=== PATIENT | female | born 1955 | race Caucasian/White ===

== ENCOUNTER → 2020-05-13 13:20 | Outpatient (CLI) | payer BC, SELFPAY ==
--- NOTE | ~2020-05-13 | MR_ITS ---
EXAMINATION: MR lumbar spine wo con DATE: 05/13/2020 14:16 INDICATION: Severe low back pain. Twisting injury. TECHNIQUE: Magnetic resonance imaging (MRI) of the lumbar spine was performed without intravenous con trast. Sequences included sagittal T2-weighted FSE, sagittal T2-weighted FS FSE, sagittal T1-weighted FSE, and axial T2-weighted FSE. COMPARISON: None FINDINGS: Bone alignment is normal. Vertebral body heights are normal. There is mildly decreased disc height at L2-L3. The distal spinal cord signal intensity is normal. The conus medullaris is at L1. T he following disc levels are specifically discussed: L1-L2: The disc does not extend beyond the endplate margin. There is mild bilateral facet joint osteo arthritis. There is no neural foraminal stenosis. There is no central canal stenosis. L2-L3: The disc is bulging and has an annular fissure. There is no facet joint osteoarthritis. There is mild bilateral neural foraminal stenosis. There is mild central canal stenosis. L3-L4: The disc is mildly bulging and has an annular fissure. There is mild bilateral facet joint ost eoarthritis. There is mild bilateral neural foraminal stenosis. There is mild central canal stenosis. L4-L5: The disc is bulging and has an annular fissure. There is mild right facet joint osteoarthritis . There is mild bilateral neural foraminal stenosis. There is mild central canal stenosis. L5-S1: The disc is mildly bulging and has an annular fissure. There is mild bilateral facet joint ost eoarthritis. There is no neural foraminal stenosis. There is no central canal stenosis. IMPRESSION: 1. Mild lumbar spondylosis. Reviewed, dictated and finalized at location A. IMPRESSION: 1. Mild lumbar spondylosis.
== END ==
PROVIDERS: PCP Internal Medicine; Visit Provider Nurse Practitioner Family
DX: M47.896 Other spondylosis, lumbar region (principal)
CPT/HCPCS: 72148

== ENCOUNTER 2020-05-24 15:59 | Outpatient (CLI) | payer BC, SELFPAY ==
--- NOTE | ~2020-05-24 | MM_ITS ---
EXAMINATION: MM screening esthela BI w jerri HISTORY: Screening TECHNIQUE: Craniocaudal and mediolateral oblique 3-D tomosynthesis images were obtained and synthetic 2-D images were generated. CAD analysis was submitted and interpreted. COMPARISON: Comparison to multiple prior studies sequentially, with oldest reviewed study dated 03/2017. BREAST PARENCHYMAL COMPOSITION: The breasts are heterogenously dense, which may obscure small masses FINDINGS: There is no evidence of suspicious mass, calcification, or architectural distortion to sugg est malignancy in either breast. There has been no suspicious interval change. IMPRESSION: 1. No mammographic evidence of malignancy. 2. Recommend routine screening mammography in one year. BI-RADS CATEGORY 1 - NEGATIVE Reviewed, dictated and finalized at location A.
== END 2020-05-24 16:00 | disposition home or self-care (01) ==
PROVIDERS: PCP Internal Medicine
DX: Z12.31 Encounter for screening mammogram for malignant neoplasm of breast (principal)
CPT/HCPCS: 77063; 77067

== ENCOUNTER 2020-05-29 13:55 | Emergency (ER) | payer BC, SELFPAY ==
[2020-05-29 13:57] VITALS: BP 119/61; PULSE 103; RESP 23; TEMP 36.6; O2SAT 100
--- NOTE | 2020-05-29 14:38 | ED.GENADULT ---
HPI - General Adult General Chief complaint: Back Pain/Injury Stated complaint: low back pain Time Seen by Provider: 05/29/20 14:37 History of Present Illness HPI narrative: 65-year-old woman with known herniated disc in L4- L5, confirmed by MRI 2 weeks ago. She received an epidural injection at that time and had relief for short period. This is result of a years old injury. She is followed by pain management, she spoke to the nurse practitioner there today and she recommended that she come to the emergency room for pain medication and injection of the site. I have explained to the patient that there will be no injection. Denies any urinary or bowel symptoms and no numbness. Onset (ago): day(s) Location: back (lower back bilat) Severity: severe Quality: sharp Pain Consistency: constant Relieving factors: none Exacerbating factors: movement Treatments prior to arrival: none Related Data Home Medications Medication Instructions Recorded Confirmed solifenacin [Vesicare] 10 mg PO DAILY 05/29/20 spironolactone 100 mg PO DAILY 05/29/20 Allergies Allergy/AdvReac Type Severity Reaction Status Date / Time amoxicillin Allergy Unknown Other Verified 05/29/20 14:02 epinephrine Allergy Unknown Other Verified 05/29/20 14:02 propoxyphene Allergy Unknown Other Verified 05/29/20 14:02 Sulfa (Sulfonamide Allergy Unknown Other Verified 05/29/20 14:02 Antibiotics) Review of Systems Review of Systems: All systems reviewed & are unremarkable except as noted in HPI and below PMFSH Past Medical History Medical History (Updated 05/29/20 @ 16:53 by Regina Verdugo PA-C) Cancer of peritoneum Surgical History Surgical History (Updated 05/29/20 @ 14:54 by Regina Verdugo PA-C) History of hysterectomy Social History Social History (Updated 05/29/20 @ 14:53 by Regina Verdugo PA-C) Smoking status: Never smoker Alcohol intake: current Substance use: never Gender identity (if verbalized by the patient): Female Exam Const: Orientation/consciousness: patient oriented x3 Other: in pain HENMT: Head: normal to inspection Eyes: Pupils: Equal, round and reactive pupils present Resp: Effort & Inspection: normal respiratory effort Auscultation: clear to auscultation bilaterally Cardio: Rate: regular rate Rhythm: regular rhythm Skin: General skin exam: normal color Neuro: General: moves all extremities, normal sensation to monofilament, Unable to assess gait and other (leg lift limited due to pain) Extrem: General: edema right (lymphedema, LE) Psych: Mental Status: mental status grossly normal Course Course Emergency Course: Patient states that she did get some relief from the IV Toradol. She is been able to sit up on the side of the bed now. We will give some Flexeril see if that makes her able to walk. Pt is now dressed and sitting on side of bed. States she feels much better. Recommend follow up with pain management first available date. Vital Signs Vital signs: Vital Signs Temperature 36.6 C 05/29/20 13:57 Pulse Rate 103 H 05/29/20 13:57 Respiratory Rate 23 H 05/29/20 13:57 Blood Pressure 119/61 05/29/20 13:57 Pulse Oximetry 100 05/29/20 13:57 Temperature 36.6 C 05/29/20 13:57 Pulse Rate 71 05/29/20 16:39 Respiratory Rate 18 05/29/20 16:39 Blood Pressure 97/56 L 05/29/20 16:39 Pulse Oximetry 99 05/29/20 16:39 Medical Decision Making Vital Signs Vital Signs: Vital Signs Temperature 36.6 C 05/29/20 13:57 Pulse Rate 103 H 05/29/20 13:57 Respiratory Rate 23 H 05/29/20 13:57 Blood Pressure 119/61 05/29/20 13:57 Pulse Oximetry 100 05/29/20 13:57 Temperature 36.6 C 05/29/20 13:57 Pulse Rate 71 05/29/20 16:39 Respiratory Rate 18 05/29/20 16:39 Blood Pressure 97/56 L 05/29/20 16:39 Pulse Oximetry 99 05/29/20 16:39 Discharge Plan Discharge Clinical Impression: Lumbar disc disease Patient Disposition: Home, Self-C
[2020-05-29] MEDS: KETOROLAC 30 MG/ML VIAL (*BKC) IV PUSH (14:57)
[2020-05-29] MEDS: CYCLOBENZAPRINE HCL 10 MG TABLET PO (16:38)
[2020-05-29 16:39] VITALS: BP 97/56; PULSE 71; RESP 18; O2SAT 99
--- NOTE | 2020-05-29 16:42 | PC.NURSE ---
Pt able to stand up without much pain. PT able to ambulate around room
== END 2020-05-29 17:20 | disposition home or self-care (01) ==
PROVIDERS: Emergency Provider Emergency Medicine; PCP Internal Medicine
DX: M51.26 Other intervertebral disc displacement, lumbar region (principal); Z85.89 Personal history of malignant neoplasm of other organs and systems
CPT/HCPCS: 96374; 99284; A9270; J1885

== ENCOUNTER 2020-05-30 14:49 | Emergency (ER) | payer BC, SELFPAY ==
[2020-05-30 14:57] VITALS: BP 111/58; PULSE 81; RESP 18; TEMP 36.6; O2SAT 100
[2020-05-30] MEDS: SODIUM CHLORIDE 0.9% IV 1,000 ML 999 ML IV CONT ×2 (15:16→17:56)
[2020-05-30 15:23] LABS: Basophils Percent Auto 0.4 % (0.2-1.2); Eosinophils Absolute Auto 0.1 K/mm3 (0-0.3); Eosinophils Percent Auto 1.9 % (0-4.4); Hematocrit 40.7 % (37.0-47.0); Immature Granulocyte Absolute 0.01 K/mm3 (0.00-0.031); Immature Granulocyte Percent A 0.1 % (0-0.5); Lymphocytes Absolute Auto 1.56 K/mm3 (0.9-3.2); Lymphocytes Percent Auto 20.7 % (18.3-44.2); Mean Corpuscular HGB Conc 34.4 g/dl (32-36); Mean Corpuscular Hemoglobin 32.3 pg (26-34); Mean Corpuscular Volume 93.8 fl (80-100); Mean Platelet Volume 10.4 fl (7.4-10.4); Monocytes Absolute Auto 0.5 K/mm3 (0.1-0.6); Monocytes Percent Auto 7.2 % (2.6-8.5); Neutrophils Absolute Auto 5.2 K/mm3 (1.3-6.7); Neutrophils Percent Auto 69.7 % (45.5-73.1); Platelet Count Result 299 k/mm3 (150-375); Red Blood Count 4.34 M/mm3 (4.2-5.4); Red Cell Distribution Width 13.1 % (11.5-14.5); White Blood Count 7.5 K/mm3 (4.5-10.0)
[2020-05-30 15:56] LABS: Erythrocyte Sedimentation Rate 23 mm/hr (0-20)
--- NOTE | 2020-05-30 15:59 | ED.BACK ---
HPI - Back Pain/Injury General Chief Complaint: Back Pain/Injury Stated Complaint: back pain Time Seen by Provider: 05/30/20 14:55 Source: patient, family and old records reviewed Mode of arrival: EMS Limitations: no limitations History of Present Illness HPI Narrative: Patient is a 65-year-old female who presents to emergency department for evaluation of low back pain radiating down the left leg patient with history of chronic low back pain had MRI in March which showed lumbar spondylosis has been having pain since has seen pain management and had injections and has follow-up by phone with pain management tomorrow. Patient was seen in the emergency department yesterday evaluated had improvement but this morning has had increasing pain has been taking Toradol and Flexeril with minimal improvement today. Patient denies illness injury or trauma. Related Data Home Medications Medication Instructions Recorded Confirmed solifenacin [Vesicare] 10 mg PO DAILY 05/29/20 spironolactone 100 mg PO DAILY 05/29/20 Allergies Allergy/AdvReac Type Severity Reaction Status Date / Time amoxicillin Allergy Unknown Other Verified 05/30/20 15:00 epinephrine Allergy Unknown Other Verified 05/30/20 15:00 propoxyphene Allergy Unknown Other Verified 05/30/20 15:00 Sulfa (Sulfonamide Allergy Unknown Other Verified 05/30/20 15:00 Antibiotics) Review of Systems Review of Systems: All systems reviewed & are unremarkable except as noted in HPI and below PMFSH Past Medical History Medical History Cancer of peritoneum Surgical History Surgical History History of hysterectomy Social History Social History Smoking status: Never smoker Alcohol intake: current Substance use: never Gender identity (if verbalized by the patient): Female Exam Narrative: Exam Narrative: GENERAL: Well-appearing, well-nourished, uncomfortable, and in no acute distress. HEAD: Normocephalic, atraumatic. EYES: PERRLA and EOMI. ENT: Nares clear, no rhinorrhea or epistaxis. Mucous membranes moist. CHEST: Clear to auscultation. No respiratory distress. No wheezes rales or rhonchi HEART: Regular rate and rhythm. No murmur heard. Normal peripheral pulses. ABDOMEN: Soft, nontender, nondistended EXTREMITIES: Normal range of motion. No edema. Tenderness in the lower lumbar segments SKIN: Warm, dry, no rash. NEURO: No focal deficits. Alert and oriented x3. Motor and sensory intact in the lower legs. Cranial nerves II through XII grossly intact. Neurovascularly intact. Capillary refill less than 2 seconds PSYCH: Normal mood and affect. Course Course Emergency Course: Patient was able to get up and ambulate and stand will be discharged she is aware of discussion with the neurosurgery consult and will follow with pain management Consultations Consultation #1: Discussed case with neurosurgery who recommends the patient can follow with pain management given the findings of the MRI recently Date: 05/30/20 Time: 20:14 Vital Signs Vital signs: Vital Signs Temperature 97.8 F 05/30/20 14:57 Pulse Rate 81 05/30/20 14:57 Respiratory Rate 18 05/30/20 14:57 Blood Pressure 111/58 L 05/30/20 14:57 Pulse Oximetry 100 05/30/20 14:57 Temperature 97.8 F 05/30/20 14:57 Pulse Rate 70 05/30/20 17:47 Respiratory Rate 18 05/30/20 17:47 Blood Pressure 112/68 05/30/20 17:47 Pulse Oximetry 99 05/30/20 17:47 MDM - Back Pain/Injury MDM Narrative Medical decision making narrative: Patients pain is positional in nature and localized to back without signs of cord compression or cauda equina based on neurological exam, skeletal exam and history. No fever or other significant factors to suggest osteomyelitis or spinal epidural abscess. No symptoms or signs to suggest pain is refe
[2020-05-30 16:06] LABS: Alanine Aminotransferase 15 U/L (4-35); Albumin Level 4.3 g/dL (3.5-5.1); Alkaline Phosphatase 76 U/L (38-126); Anion Gap 9 mmol/L (8-16); Aspartate Amino Transferase 25 U/L (14-36); Bilirubin,Total 0.7 mg/dL (0.2-1.3); Blood Urea Nitrogen 24 mg/dL (7-17); CRP 0.7 mg/dL (<1.0); Calcium 9.8 mg/dL (8.4-10.2); Carbon Dioxide 26 mmol/L (22-30); Chloride 104 mmol/L (98-107); Estimated Glomerular Filt Rate > 60; Glucose 85 mg/dL (65-105); Potassium 3.9 mmol/L (3.4-5.0); Sodium 139 mmol/L (137-145)
[2020-05-30 17:46] LABS: Add Urine Microscopic? NO; Appearance Urine Clear (Clear); Bilirubin Urine Negative (Negative); Blood Urine Negative (Negative); Color Urine Straw (Yellow); Glucose Urine UA Negative (Negative); Ketones Urine Negative (Negative); Leukocyte Esterase Ur Negative LEU/UL (Negative); Nitrate Urine Negative (Negative); Protein Urine Negative (Negative); Specific Grav Ur 1.012 (1.001-1.035); Urobilinogen Urine Negative mg/dL (<2.0)
[2020-05-30 17:47] VITALS: BP 112/68; PULSE 70; RESP 18; O2SAT 99
[2020-05-30] MEDS: KETOROLAC 30 MG/ML VIAL (*BKC) IV PUSH (17:57)
[2020-05-30] MEDS: MORPHINE SULFATE 4 MG/ML INJ IV PUSH (18:15)
[2020-05-30] MEDS: diazePAM 5 MG TABLET PO (19:32)
--- NOTE | 2020-05-30 19:33 | PC.NURSE ---
patient continues to be unwilling/unable to sit up, stand or roll over in the bed. abd binder applied and patient reports that it makes pain worse
[2020-05-30 20:35] VITALS: BP 122/78; PULSE 78; RESP 18; O2SAT 99
== END 2020-05-30 20:37 | disposition home or self-care (01) ==
PROVIDERS: Emergency Medicine Emergency Medical Services; Emergency Provider Emergency Medicine; PCP Internal Medicine
DX: M54.16 Radiculopathy, lumbar region (principal); Z85.89 Personal history of malignant neoplasm of other organs and systems
CPT/HCPCS: 36415; 51701; 80053; 81003; 85025; 85652; 86140; 96361; 96374; 96375; 99284; A9270; J0131; J1100; J1885; J2270; J3360; J7030

== ENCOUNTER → 2020-06-03 12:14 | Outpatient (CLI) | payer BC, SELFPAY ==
--- NOTE | ~2020-06-03 | DEXA_ITS ---
Bone Density Report Name: Celeste Chopra Age: 65 Sex: Female Ethnicity: White Date of : 1955 Indication: postmenopausal; screening for osteoporosis; hysterectomy; Referring Provider: TEREZA, FE Wolf Study: Bone densitometry was performed. Exam Date: June 03, 2020 Accession number: [id number] Bone Density: Region BMD T-score Z-score Classification AP Spine (L1-L4) 0.875 -1.6 0.1 Osteopenia Femoral Neck (Left) 0.737 -1.0 0.5 Normal Total Hip (Left) 0.912 -0.2 0.9 Normal Femoral Neck (Right) 0.739 -1.0 0.5 Normal Total Hip (Right) 0.873 -0.6 0.6 Normal Total Hip Mean 0.893 -0.4 0.8 Normal World Health Organization criteria for BMD impression classify patients as: Normal (T-score at or above -1.0), Osteopenia (T-score between -1.0 and -2.5), or Osteoporosis (T-score at or below -2.5). 10-year Fracture Risk(1): Major Osteoporotic Fracture 7.3% Hip Fracture 0.5% Reported Risk Factors: [place] (), Neck BMD=0.739, BMI=22.4 (1) FRAX(R) Version 3.08. Fracture probability calculated for an untreated patient. Fracture probability may be lower if the patient has received treatment. Clinical Information Provided by Patient: Has the following medical conditions: Hysterectomy Patient maximum height was 64 Menopause Age: 53 Onset of menses at age 18 Number of children 2 Impression: The patient has low bone mass, based on the Total Spine T-score. The patient has an estimated ten-year risk of hip fracture of 0.5% and an estimated ten-year risk of major fracture of 7.3%, based on the WHO FRAX algorithm. Discussion: BONE DENSITY IS LOW AT ONE OR MORE SKELETAL SITES. This patient's lowest T-score is low at one or more skeletal sites. It meets the World Health Organization's (WHO) criteria for ?low bone mass? (T-score between -1.0 and -2.5). The patient's 10-year risk of fracture as calculated by FRAX is less than the threshold where pharmacological therapy is recommended by the National Osteoporosis Foundation (NOF). However, all treatment decisions require clinical judgment and consideration of individual patient factors, including patient preferences, comorbidities, previous drug use, risk factors not captured in the FRAX model (e.g., frailty, falls, vitamin D deficiency, increased bone turnover, interval significant decline in bone density) and possible under or overestimation of fracture risk by FRAX. The patient should follow a healthful lifestyle (good nutrition with adequate calcium and vitamin D, and appropriate weight-bearing exercise). Follow-Up: Consider repeating this study in 2 to 3 years to reassess this patient's status, or sooner if there is some new clinical indication. Reported by: MAINOR on 06/03/2020 12:46:00 PM.
== END ==
PROVIDERS: PCP Internal Medicine; Visit Provider Internal Medicine
DX: Z78.0 Asymptomatic menopausal state (principal); M85.88 Other specified disorders of bone density and structure, other site
CPT/HCPCS: 77080

== ENCOUNTER → 2020-07-01 14:19 | Outpatient (CLI) | payer BC, SELFPAY ==
--- NOTE | ~2020-07-01 | US_ITS ---
EXAMINATION: US thyroid EXAM DATE: 07/01/2020 14:38 INDICATION: Thyroid nodules. TECHNIQUE: Multiple grayscale and Doppler images of the thyroid were obtained (by a technologist who performed the scan) and subsequently reviewed. Individual nodules and recommendations may be reporte d in accordance with TI-RADS system as designated by the 2017 ACR White Paper TI-RADS committee. The re is no prior study for comparison. FINDINGS: The right thyroid lobe measures 4.0 x 1.1 x 1.1 cm, and the left measuring 4.3 x 1.4 x 1.4 cm. Diffus e hypervascularity to the thyroid gland. There are 2 left thyroid lobe nodules, largest measuring 1.7 x 1.3 x 1.3 centimeters, solid (2 points), isoechoic (1 point), wider than tall, smooth margin, with out echogenic foci, category TR3 for this nodule. Next largest left thyroid lobe nodule is category TR 4 nodule measuring up to 9 mm. IMPRESSION: 1. Left thyroid nodules, largest 1.7 cm; consider one-year follow-up thyroid ultrasound. 2. Thyroid parenchyma hypervascularity. Reviewed, dictated and finalized at location A. IMPRESSION: 1. Left thyroid nodules, largest 1.7 cm; consider one-year follow-up thyroid u ltrasound. 2. Thyroid parenchyma hypervascularity.
== END ==
PROVIDERS: PCP Internal Medicine; Visit Provider Internal Medicine
DX: E04.1 Nontoxic single thyroid nodule (principal)
CPT/HCPCS: 76536

== ENCOUNTER 2020-12-27 16:00 | Outpatient (CLI) | payer BC, SELFPAY | END 2020-12-27 16:01 | disposition home or self-care (01) | LOC: ANHCOVIDVC 16:00 | PROVIDERS: PCP Internal Medicine | DX: Z23 Encounter for immunization (principal) | CPT/HCPCS: 0001A; 91300 ==

== ENCOUNTER 2021-01-17 15:58 | Outpatient (CLI) | payer BC, SELFPAY | END 2021-01-17 15:59 | disposition home or self-care (01) | LOC: ANHCOVIDVC 15:58 | PROVIDERS: PCP Internal Medicine | DX: Z23 Encounter for immunization (principal) | CPT/HCPCS: 0002A; 91300 ==

== ENCOUNTER 2021-03-18 07:52 | Emergency (ER) | payer BC, SELFPAY ==
--- NOTE | ~2021-03-18 | US_ITS ---
EXAMINATION: US venous doppler LE RT DATE: 03/18/2021 09:12 INDICATION: Right lower limb swelling TECHNIQUE: Joseph scale images without and with compression and Doppler images of the right lower extre mity veins were obtained. COMPARISON: None FINDINGS: The right common femoral vein, profunda femoral vein, femoral vein, popliteal vein, peronea l trunk, posterior tibial veins, and greater saphenous vein are patent. IMPRESSION: 1. Patent right lower extremity veins. No evidence of deep venous thrombosis. Reviewed, dictated and finalized at location D.
[2021-03-18 08:03] VITALS: BP 128/67; PULSE 124; RESP 20; TEMP 36.3; O2SAT 99
--- NOTE | 2021-03-18 08:32 | ED.GENADULT ---
HPI - General Adult General Chief complaint: Skin/Abscess/Foreign Body Stated complaint: cellulits right leg Time Seen by Provider: 03/18/21 08:32 Source: patient and RN notes reviewed Mode of arrival: ambulatory Limitations: no limitations History of Present Illness HPI narrative: Patient 65 years old white female presented to the ED with discomfort, warmth and discoloration of the right thigh started 5 days ago, was seen at urgent care 2 days later and started on the doxycycline for a diagnosis of cellulitis. History of radical hysterectomy with removing all the abdominal lymph nodes, right lower extremity lymphedema. Patient had her toenails trimmed and colored couple days prior to her symptoms, subsequently developed slight swelling and pain of the right foot which spread to the back of the right knee and right thigh. Patient reports been having intermittent fever, get better on Tylenol, denies any nausea or vomiting or abdominal pain. Patient believes that her symptoms are improving compared to 2 days ago. Related Data Home Medications Medication Instructions Recorded Confirmed solifenacin [Vesicare] 10 mg PO DAILY 05/29/20 spironolactone 100 mg PO DAILY 05/29/20 acyclovir 03/18/21 03/18/21 Allergies Allergy/AdvReac Type Severity Reaction Status Date / Time epinephrine Allergy Unknown Other Verified 03/18/21 08:02 propoxyphene Allergy Unknown Other Verified 05/30/20 15:00 Sulfa (Sulfonamide Allergy Unknown Other Verified 05/30/20 15:00 Antibiotics) amoxicillin AdvReac Unknown Nausea Verified 03/18/21 08:02 Review of Systems Review of Systems: Narrative: CONSTITUTIONAL: Denies fever, chills, or sweats. EYES: Denies visual changes, redness, or discharge. ENT: Denies rhinorrhea, congestion, sore throat, or otalgia. CARDIOVASCULAR: Denies chest pain, palpitations, or edema. RESPIRATORY: Denies cough or dyspnea. GASTROINTESTINAL: Denies abdominal pain, nausea, vomiting, or diarrhea. GENITOURINARY: Denies dysuria or hematuria. SKIN: Denies rash or itching. MUSCULOSKELETAL: Denies back pain, joint pain, or myalgia. NEUROLOGIC: Denies headache, numbness, or weakness. PSYCHIATRIC: Denies anxiety or depression. [facility] Past Medical History Medical History (Updated 03/18/21 @ 10:03 by Cris Parker MD) Cancer of peritoneum Surgical History Surgical History History of hysterectomy Social History Social History Smoking status: Never smoker Alcohol intake: current Substance use: never Gender identity (if verbalized by the patient): Female Exam Narrative: Exam Narrative: General appearance: Well-developed, well-nourished Skin: 2+ edema right foot dorsally, 1+ edema right lower leg up to the knee, diffuse warmth of the right Chest and respiratory: Airway patent, no respiratory distress, no accessory muscle use Heart: Regular rate/rhythm Abdomen: Soft, nontender, no organomegaly, quiet bowel sounds Vascular: Normal peripheral pulses, normal capillary refill. Musculoskeletal: Normal range of motion, nontender back Neurologic: Alert and oriented ?3, [employer] is normal as tested, no gross motor deficit Course Course Emergency Course: Stable Vital Signs Vital signs: Vital Signs Temperature 36.3 C L 03/18/21 08:03 Pulse Rate 124 H 03/18/21 08:03 Respiratory Rate 20 03/18/21 08:03 Blood Pressure 128/67 03/18/21 08:03 Pulse Oximetry 99 03/18/21 08:03 Temperature 36.3 C L 03/18/21 08:03 Pulse Rate 124 H 03/18/21 08:03 Respiratory Rate 20 03/18/21 08:03 Blood Pressure 128/67 03/18/21 08:03 Pulse Oxim
[2021-03-18 09:06] LABS: Basophils Percent Auto 0.4 % (0.2-1.2); Eosinophils Absolute Auto 0.1 K/mm3 (0-0.3); Eosinophils Percent Auto 1.3 % (0-4.4); Hematocrit 40.4 % (37.0-47.0); Hemoglobin 13.4 g/dL (12.0-15.0); Immature Granulocyte Absolute 0.03 K/mm3 (0.00-0.031); Immature Granulocyte Percent A 0.4 % (0-0.5); Lymphocytes Absolute Auto 0.83 K/mm3 (0.9-3.2); Lymphocytes Percent Auto 12.1 % (18.3-44.2); Mean Corpuscular HGB Conc 33.2 g/dl (32-36); Mean Corpuscular Hemoglobin 31.8 pg (26-34); Mean Platelet Volume 9.4 fl (7.4-10.4); Monocytes Absolute Auto 0.6 K/mm3 (0.1-0.6); Neutrophils Absolute Auto 5.4 K/mm3 (1.3-6.7); Neutrophils Percent Auto 77.8 % (45.5-73.1); Platelet Count Result 324 k/mm3 (150-375); Red Blood Count 4.21 M/mm3 (4.2-5.4); Red Cell Distribution Width 13.2 % (11.5-14.5); White Blood Count 6.9 K/mm3 (4.5-10.0)
[2021-03-18 09:23] LABS: Alanine Aminotransferase 32 U/L (4-35); Albumin Level 4.3 g/dL (3.5-5.1); Alkaline Phosphatase 74 U/L (38-126); Anion Gap 8 mmol/L (8-16); Aspartate Amino Transferase 39 U/L (14-36); Bilirubin,Total 0.7 mg/dL (0.2-1.3); Blood Urea Nitrogen 17 mg/dL (7-17); Calcium 9.5 mg/dL (8.4-10.2); Carbon Dioxide 30 mmol/L (22-30); Chloride 104 mmol/L (98-107); Estimated CRCL calculation 47 ml/min; Estimated Glomerular Filt Rate > 60; Glucose 113 mg/dL (65-105); Potassium 3.8 mmol/L (3.4-5.0); Sodium 142 mmol/L (137-145)
[2021-03-18 10:39] VITALS: BP 106/72; PULSE 92; RESP 16; O2SAT 99
== END 2021-03-18 10:40 | disposition home or self-care (01) ==
PROVIDERS: Emergency Provider Emergency Medicine; PCP Internal Medicine
DX: L03.115 Cellulitis of right lower limb (principal); Z85.89 Personal history of malignant neoplasm of other organs and systems
CPT/HCPCS: 36415; 80053; 85025; 93971; 96365; 99284; J3370

== ENCOUNTER → 2021-05-07 07:52 | Outpatient (CLI) | payer MEDICARE, BC, SELFPAY ==
--- NOTE | ~2021-05-07 | XR_ITS ---
EXAMINATION: XR shoulder LT min 2V, XR shoulder RT min 2V DATE: 05/07/2021 08:17 INDICATION: Bilateral shoulder pain, left greater than right TECHNIQUE: 1. AP internally and externally rotated, AP oblique externally rotated and axillary views of the left shoulder were obtained. 2. AP internally and externally rotated, AP oblique externally rotated and axillary views of the righ t shoulder were obtained. COMPARISON: None FINDINGS: Normal alignment at both shoulders. No fracture. Glenohumeral Kd are normal. Minimal bilateral ac romioclavicular osteoarthritis. Visualized portion of the lungs are clear. Soft tissues are unremarka ble. IMPRESSION: Minimal bilateral acromioclavicular osteoarthritis. Reviewed, dictated and finalized at location A. IMPRESSION: Minimal bilateral acromioclavicular osteoarthritis.
== END ==
PROVIDERS: PCP Internal Medicine; Visit Provider Nurse Practitioner Adult Health
DX: M19.011 Primary osteoarthritis, right shoulder (principal); M19.012 Primary osteoarthritis, left shoulder
CPT/HCPCS: 73030

== ENCOUNTER 2021-05-26 17:10 | Outpatient (CLI) | payer MEDICARE, BC, SELFPAY ==
--- NOTE | ~2021-05-26 | MM_ITS ---
EXAMINATION: MM screening esthela BI w jerri HISTORY: Screening TECHNIQUE: Craniocaudal and mediolateral oblique 3-D tomosynthesis images were obtained and synthetic 2-D images were generated. CAD analysis was submitted and interpreted. COMPARISON: No prior mammogram is available for comparison at this institution. BREAST PARENCHYMAL COMPOSITION: The breasts are heterogeneously dense, which may obscure small masses . FINDINGS: There is no evidence of suspicious mass, calcification, or architectural distortion to sugg est malignancy in either breast. There has been no suspicious interval change. IMPRESSION: 1. No mammographic evidence of malignancy. 2. Recommend routine screening mammography in one year. BI-RADS Category 1: Negative Reviewed, dictated and finalized at location A.
== END 2021-05-26 17:11 | disposition home or self-care (01) ==
PROVIDERS: PCP Internal Medicine; Visit Provider Internal Medicine
DX: Z12.31 Encounter for screening mammogram for malignant neoplasm of breast (principal)
CPT/HCPCS: 77063; 77067

== ENCOUNTER 2021-06-21 16:37 | Outpatient (CLI) | payer MEDICARE, BC, SELFPAY ==
--- NOTE | ~2021-06-21 | MR_ITS ---
EXAMINATION: MR shoulder RT wo con DATE: 06/21/2021 17:53 INDICATION: Right shoulder pain. TECHNIQUE: Magnetic resonance imaging (MRI) of the right shoulder was performed without intravenous c ontrast. Sequences included axial PD-weighted FS FSE, coronal oblique PD-weighted FS FSE and T2-weigh randolph FS FSE, and sagittal oblique T2-weighted FS FSE and T1-weighted FSE. COMPARISON: Right shoulder radiographs 05/07/2021 FINDINGS: Coracoacromial arch: The acromion undersurface is curved in morphology (type II). There is severe acromioclavicular joint osteoarthritis including inferiorly directed osteophytes. There is mild subacromial/subdeltoid bursit is. Rotator cuff: There is severe supraspinatus and infraspinatus tendinopathy. There is a bursal sided partial-thickne ss tear of the conjoined portion of the tendon measuring 8 mm anterior to posterior by 6 mm proximal to distal by 30% tendon thickness. Teres minor tendon is normal. There is severe superior subscapular is tendinopathy. There is no asymmetric fatty atrophy of the rotator cuff muscle bellies. Biceps tendon and glenoid labrum: The biceps tendon is in bicipital groove. There is a partial tear of proximal biceps tendon. There is degeneration of the superior glenoid labrum without well-defined tear. Fluid: There is no glenohumeral joint effusion. Bones/cartilage: There is shallow partial-thickness cartilage loss of glenoid. Humeral head cartilage is normal. IMPRESSION: 1. Bursal-sided, partial-thickness tear of supraspinatus and infraspinatus tendons. 2. Partial tear of proximal biceps tendon. 3. Mild glenoid chondrosis. 4. Severe acromioclavicular joint osteoarthritis. 5. Mild subacromial/subdeltoid bursitis. Reviewed, dictated and finalized at location A. IMPRESSION: 1. Bursal-sided, partial-thickness tear of supraspinatus and infraspinatus tend ons. 2. Partial tear of proximal biceps tendon. 3. Mild glenoid chondrosis. 4. Severe acromioclavicular joint osteoarthritis. 5. Mild subacromial/subdeltoid bursitis.
== END 2021-06-21 16:38 | disposition home or self-care (01) ==
PROVIDERS: PCP Internal Medicine; Visit Provider Nurse Practitioner Adult Health
DX: M75.51 Bursitis of right shoulder (principal); M19.011 Primary osteoarthritis, right shoulder; S46.211A Strain of muscle, fascia and tendon of other parts of biceps, right arm, initial encounter; X58.XXXA Exposure to other specified factors, initial encounter
CPT/HCPCS: 73221

== ENCOUNTER 2021-07-16 02:10 | Emergency (ER) | payer MEDICARE, BC, SELFPAY ==
--- NOTE | ~2021-07-16 | XR_ITS ---
EXAMINATION: XR chest 2V EXAM DATE: 07/16/2021 03:10 INDICATION: Cough for 2 days. TECHNIQUE: Frontal and lateral projections of the chest obtained and reviewed. Comparison is made to prior examination from 08/07/2018. FINDINGS: The lungs are clear. There are no pleural effusions. The cardiomediastinal silhouette is within normal limits. There is no pneumothorax suspected. The bones and soft tissues are unremarkab le. IMPRESSION: No acute cardiopulmonary findings. Reviewed, dictated and finalized at location A.
[2021-07-16 02:10] VITALS: BP 134/76; PULSE 114; RESP 16; TEMP 37.2; O2SAT 97
--- NOTE | 2021-07-16 03:04 | PC.NURSE ---
Pt to XY at this time.
[2021-07-16] MEDS: SODIUM CHLORIDE 0.9% IV 1,000 ML 999 ML IV CONT (03:33)
[2021-07-16] MEDS: ONDANSETRON INJ 4 MG/2 ML VIAL IV PUSH (03:33)
[2021-07-16] MEDS: KETOROLAC 30 MG/ML VIAL (*BKC) IV PUSH (03:33)
[2021-07-16 03:39] LABS: Basophils Percent Auto 0.5 % (0.2-1.2); Eosinophils Percent Auto 0.2 % (0-4.4); Hematocrit 38.1 % (37.0-47.0); Hemoglobin 12.7 g/dL (12.0-15.0); Immature Granulocyte Absolute 0.03 K/mm3 (0.00-0.031); Immature Granulocyte Percent A 0.5 % (0-0.5); Lymphocytes Absolute Auto 0.42 K/mm3 (0.9-3.2); Lymphocytes Percent Auto 6.3 % (18.3-44.2); Mean Corpuscular HGB Conc 33.3 g/dl (32-36); Mean Corpuscular Hemoglobin 32.6 pg (26-34); Mean Corpuscular Volume 97.7 fl (80-100); Monocytes Absolute Auto 0.7 K/mm3 (0.1-0.6); Monocytes Percent Auto 10.4 % (2.6-8.5); Neutrophils Absolute Auto 5.4 K/mm3 (1.3-6.7); Neutrophils Percent Auto 82.1 % (45.5-73.1); Platelet Count Result 242 k/mm3 (150-375); Red Cell Distribution Width 13.3 % (11.5-14.5); White Blood Count 6.6 K/mm3 (4.5-10.0)
[2021-07-16 03:52] LABS: Alanine Aminotransferase 34 U/L (4-35); Albumin Level 4.8 g/dL (3.5-5.1); Alkaline Phosphatase 75 U/L (38-126); Anion Gap 9 mmol/L (8-16); Aspartate Amino Transferase 35 U/L (14-36); Bilirubin,Total 0.8 mg/dL (0.2-1.3); Blood Urea Nitrogen 17 mg/dL (7-17); Calcium 9.5 mg/dL (8.4-10.2); Carbon Dioxide 27 mmol/L (22-30); Chloride 101 mmol/L (98-107); Estimated CRCL calculation 53 ml/min; Estimated Glomerular Filt Rate > 60; Glucose 145 mg/dL (65-110); Potassium 3.8 mmol/L (3.4-5.0); Sodium 137 mmol/L (137-145)
[2021-07-16] MEDS: HYDROmorphone HCL INJ (*CRX) 1 MG/ML SYR IV PUSH (04:30)
[2021-07-16 04:31] VITALS: BP 117/69; PULSE 106; RESP 14; O2SAT 96
--- NOTE | 2021-07-16 04:51 | ED.GENADULT ---
HPI - General Adult General Chief complaint: Upper Respiratory Infection Stated complaint: fever, cough, schwab, nausea since last night - is vac Time Seen by Provider: 07/16/21 02:14 History of Present Illness HPI narrative: Patient is a 66-year-old female who presents ER with cold symptoms. She reports since last night been having sinus congestion and sore throat. Its associate with cough and occasional shortness of breath. Is worse with coughing. She also has been having fever. She reports that she is vaccinated against COVID-19. No known sick contacts. She is having body aches. Headache is over her maxillary sinuses bilaterally. She reports she has been unable to breathe through her nose due to congestion. No relief with a allergy pill she took earlier. Related Data Home Medications Medication Instructions Recorded Confirmed solifenacin [Vesicare] 10 mg PO DAILY 05/29/20 spironolactone 100 mg PO DAILY 05/29/20 acyclovir 03/18/21 03/18/21 Allergies Allergy/AdvReac Type Severity Reaction Status Date / Time epinephrine Allergy Unknown Other Verified 03/18/21 08:02 propoxyphene Allergy Unknown Other Verified 05/30/20 15:00 Sulfa (Sulfonamide Allergy Unknown Other Verified 05/30/20 15:00 Antibiotics) amoxicillin AdvReac Unknown Nausea Verified 03/18/21 08:02 Review of Systems Review of Systems: All systems reviewed & are unremarkable except as noted in HPI and below Constitutional: Constitutional: Denies chills, Reports fatigue and Reports fever(s) ENT: Denies dizziness, Reports nasal congestion and Reports sore throat Respiratory: Respiratory: Reports cough, Reports dyspnea and Denies wheezing Gastrointestinal: Gastrointestinal: Denies abdominal pain, Denies diarrhea, Denies nausea and Denies vomiting Musculoskeletal: Musculoskeletal: Reports myalgias and Reports muscle cramps PMFSH Past Medical History Medical History (Updated 07/16/21 @ 04:56 by Isael Calero MD) Cancer of peritoneum SVT (supraventricular tachycardia) Surgical History Surgical History (Updated 07/16/21 @ 04:53 by Isael Calero MD) H/O cardiac radiofrequency ablation History of hysterectomy Social History Social History Smoking status: Never smoker Alcohol intake: current Substance use: never Gender identity (if verbalized by the patient): Female Exam Narrative: GENERAL: Fatigue-appearing, well-nourished, and in no acute distress. HEAD: Normocephalic, atraumatic. ENT: Mucous membranes moist. Tender to palpation of the bilateral frontal sinuses. NECK: Supple. Full range of motion without meningismus. CHEST: Clear to auscultation. No respiratory distress. HEART: Regular rate and rhythm. Normal peripheral pulses. ABDOMEN: Soft, nontender, nondistended. EXTREMITIES: Normal range of motion. No edema. SKIN: Warm, dry, no rash. NEURO: Alert and oriented x3. Course Course Emergency Course: Unremarkable evaluation. No evidence of pneumonia, flu negative. Patient swabbed for Covid but this seems to be less likely. Discharge home. Recommend supportive care. Vital Signs Vital signs: Vital Signs Temperature 99 F 07/16/21 02:10 Pulse Rate 114 H 07/16/21 02:10 Respiratory Rate 16 07/16/21 02:10 Blood Pressure 134/76 07/16/21 02:10 Pulse Oximetry 97 07/16/21 02:10 Temperature 99 F 07/16/21 02:10 Pulse Rate 106 H 07/16/21 04:31 Respiratory Rate 14 07/16/21 04:31 Blood Pressure 117/69 07/16/21 04:31 Pulse Oximetry 96 07/16/21 04:31 Medical Decision Making Vital Signs Vital Signs: Vital Signs Temperature 99 F 07/16/21 02:10 Pulse Rate 114 H 07/16/21 02:10 Respiratory Rate 16 07/16/21 02:10 Blood Pressure 134/76 07/16/21 02:10 Pulse Oximetry 97 07/16/21 02:10 Temperature 99 F 07/16/21 02:10 Pulse Rate 106 H 07/16/21 04:31 Respiratory Rate 14 07/16/21 04:31 Blood Pressure 117/69
[2021-07-16 05:20] VITALS: BP 101/61; PULSE 115; RESP 20; O2SAT 98
[2021-07-16 18:03] LABS: SARS-CoV-2 RNA PCR Positive
== END 2021-07-16 05:40 | disposition home or self-care (01) ==
PROVIDERS: Emergency Provider Emergency Medicine; PCP Internal Medicine
DX: U07.1 COVID-19 (principal); J06.9 Acute upper respiratory infection, unspecified
CPT/HCPCS: 36415; 71046; 80053; 85025; 87804; 96361; 96374; 96375; 99284; C9803; J1170; J1885; J2405; J7030; U0003; U0005

== ENCOUNTER 2021-07-19 09:43 | Outpatient (RCR) | payer MEDICARE, BC, SELFPAY ==
[2021-07-19] MEDS: diphenhydrAMINE HCl CAP 25 MG CAPSULE PO (14:17)
[2021-07-19] MEDS: FAMOTIDINE 20 MG TABLET PO (14:17)
[2021-07-19] MEDS: ACETAMINOPHEN 325 MG TABLET 650 MG PO (14:17)
[2021-07-19 14:31] VITALS: BP 119/74; PULSE 89; RESP 18; TEMP 36.9; O2SAT 100
--- NOTE | 2021-07-19 14:57 | PC.NURSE ---
Patient had Pfizer vaccines in Nov/Dec.
[2021-07-19 16:03] VITALS: BP 106/69; PULSE 86; RESP 18; TEMP 36.6; O2SAT 98
--- NOTE | 2021-07-20 14:02 | PC.NURSE ---
Called patient to follow-up regarding COVID antibody infusion. Patient states they are feeling okay and denies any side effects at this time.
== END 2021-07-19 16:35 | disposition home or self-care (01) ==
LOC: AMCINF 09:43
PROVIDERS: PCP Internal Medicine; Referring Provider Internal Medicine; Visit Provider Internal Medicine Hematology & Oncology
DX: Z23 Encounter for immunization (principal); U07.1 COVID-19
CPT/HCPCS: A9270; J7050; M0243

== ENCOUNTER → 2022-01-14 08:28 | Outpatient (CLI) | payer MEDICARE, BC, SELFPAY ==
--- NOTE | ~2022-01-14 | MR_ITS ---
EXAMINATION: MR lumbar spine wo con EXAM DATE: 01/14/2022 09:30 INDICATION: Chronic LBP, si surg 11/2020, no trauma, abdominal ca 2007. TECHNIQUE: Multi-sequential, multiplanar MR images of the lumbar spine were obtained without contrast . Sagittal T1, T2, T2 fat saturation images. Axial T2 weighted images. Comparison is made to prior examination from 05/13/2020. FINDINGS: Mild disc disease from L2 through S1. Level by level evaluation: T12-L1: Disc does not extend beyond the endplate margin. Facet arthropathy: Mild. Neural foraminal stenosis: No stenosis. Central canal stenosis: No stenosis. L1-L2: Disc does not extend beyond the endplate margin. Facet arthropathy: Mild. Neural foraminal stenosis: No stenosis. Central canal stenosis: No stenosis. L2-L3: There is a mild diffuse disc bulge. Facet arthropathy: Mild to moderate. Neural foraminal stenosis: No stenosis. Central canal stenosis: No stenosis. L3-L4: There is a mild diffuse disc bulge. Facet arthropathy: Mild to moderate. Neural foraminal stenosis: No stenosis. Central canal stenosis: No stenosis. L4-L5: There is a mild diffuse disc bulge. Facet arthropathy: Mild mild to moderate. Neural foraminal stenosis: Mild bilateral. Central canal stenosis: Mild. L5-S1: There is a mild diffuse disc bulge. Facet arthropathy: Mild. Neural foraminal stenosis: No stenosis. Central canal stenosis: No stenosis. Difficult to appreciate any significant interval change compared to 2019. IMPRESSION: 1. Mild to moderate lumbar facet arthropathy, mild disc disease. Reviewed, dictated and finalized at location G.
== END ==
PROVIDERS: Visit Provider Anesthesiology Pain Medicine
DX: M54.16 Radiculopathy, lumbar region (principal); M51.36 Other intervertebral disc degeneration, lumbar region
CPT/HCPCS: 72148

== ENCOUNTER → 2022-08-03 12:15 | Outpatient (CLI) | payer MEDICARE, BC, SELFPAY ==
--- NOTE | ~2022-08-03 | DEXA_ITS ---
Bone Density Report Name: ARTEMIO HOPKINS Age: 67 Sex: Female Ethnicity: White Date of : 1955 Indication: osteopenia; hysterectomy; postmenopausal Referring Provider: FE STARKS Study: Bone densitometry was performed. Exam Date: August 03, 2022 Accession number: [id number] Bone Density: Region BMD T-score Z-score Classification AP Spine (L1-L4) 0.831 -2.0 -0.1 Osteopenia Femoral Neck (Left) 0.758 -0.8 0.8 Normal Total Hip (Left) 0.919 -0.2 1.1 Normal Femoral Neck (Right) 0.751 -0.9 0.7 Normal Total Hip (Right) 0.891 -0.4 0.9 Normal Total Hip Mean 0.905 -0.3 1.0 Normal World Health Organization criteria for BMD impression classify patients as: Normal (T-score at or above -1.0), Osteopenia (T-score between -1.0 and -2.5), or Osteoporosis (T-score at or below -2.5). 10-year Fracture Risk(1): Major Osteoporotic Fracture 7.6% Hip Fracture 0.6% Reported Risk Factors: [place] (), Neck BMD=0.751, BMI=22.6 (1) FRAX(R) Version 3.08. Fracture probability calculated for an untreated patient. Fracture probability may be lower if the patient has received treatment. Previous Exams: Region Exam Age BMD T-score BMD Change BMD Change Date g/cm2 vs Baseline vs Previous AP Spine(L1-L4) 08/03/2022 67 0.831 -2.0 -0.044* -0.044* 06/03/2020 65 0.875 -1.6 Total Hip(Left) 08/03/2022 67 0.919 -0.2 0.007 0.007 06/03/2020 65 0.912 -0.2 Total Hip(Right) 08/03/2022 67 0.891 -0.4 0.017 0.017 06/03/2020 65 0.873 -0.6 *Denotes significance at 95% confidence level, LSC for AP Spine = 0.022 g/cm2, LSC for Total Hip = 0.027 g/cm2 Clinical Information Provided by Patient: Has used the following medications: Vitamin D, Calcium Has the following medical conditions: Hysterectomy Patient maximum height was 64 Menopause Age: 53 Onset of menses at age 18 Number of children 2 Impression: The patient has low bone mass, based on the Total Spine T-score. The patient has an estimated ten-year risk of hip fracture of 0.6% and an estimated ten-year risk of major fracture of 7.6%, based on the WHO FRAX algorithm. The BMD for the AP Spine(L1-L4) decreased, changing by -0.044 since the last DXA exam. Discussion: BONE DENSITY IS LOW AT ONE OR MORE SKELETAL SITES. This patient's lowest T-score is low at one or more skeletal sites. It meets the World Health Organization's (WHO) criteria
== END ==
PROVIDERS: PCP Internal Medicine; Visit Provider Internal Medicine
DX: M85.88 Other specified disorders of bone density and structure, other site (principal)
CPT/HCPCS: 77080

== ENCOUNTER 2023-06-05 16:26 | Outpatient (CLI) | payer MEDICARE, BC, SELFPAY ==
--- NOTE | ~2023-06-05 | MM_ITS ---
EXAMINATION: MM screening esthela BI w jerri HISTORY: Screening TECHNIQUE: Craniocaudal and mediolateral oblique 3-D tomosynthesis images were obtained and synthetic 2-D images were generated. CAD analysis was submitted and interpreted. COMPARISON: Comparison to multiple prior studies sequentially, with oldest reviewed study dated 03/2017. BREAST PARENCHYMAL COMPOSITION: The breasts are heterogeneously dense, which may obscure small masses . FINDINGS: There is a focal asymmetry laterally in the right breast on CC view. There are no new megan s, calcifications or architectural distortion in the left breast to suggest malignancy. IMPRESSION: 1. Focal right breast asymmetry laterally on CC view. 2. Additional mammographic views and possible breast ultrasound are recommended. BI-RADS Category 0: Incomplete: Needs additional imaging evaluation. Reviewed, dictated and finalized at location A. IMPRESSION: 1. Focal right breast asymmetry laterally on CC view. 2. Additional mammographic views and possible breast ultrasound are recommended . BI-RADS Category 0: Incomplete: Needs additional imaging evaluation.
== END 2023-06-05 16:27 | disposition home or self-care (01) ==
PROVIDERS: PCP Internal Medicine
DX: Z12.31 Encounter for screening mammogram for malignant neoplasm of breast (principal); R92.8 Other abnormal and inconclusive findings on diagnostic imaging of breast
CPT/HCPCS: 77063; 77067

== ENCOUNTER 2023-06-12 09:00 | Outpatient (CLI) | payer MEDICARE, BC, SELFPAY ==
--- NOTE | ~2023-06-12 | MMUS_ITS ---
EXAMINATION: MM diagnostic esthela RT w jerri, US breast RT complete HISTORY: Focal right breast asymmetry reported in the lateral breast on screening craniocaudal view o f 06/05/2023 TECHNIQUE: Additional 3-D tomosynthesis images of the right breast were performed and synthetic 2-D i mages were generated. CAD analysis was submitted and interpreted. High resolution complete right mickey st ultrasound examination including all 4 quadrants and subareolar area was performed. COMPARISON: 06/05/2023 bilateral screening mammogram FINDINGS: MAMMOGRAPHIC FINDINGS: No suspicious mass, architectural distortion, malignant calcification, skin thickening or retraction of the right breast is detected. The heterogeneously dense stroma may obscure small masses. Complete breast ultrasound examination the refore was performed. ULTRASOUND: 12:00 4 cm from nipple: 2.3 mm circumscribed sonolucency, likely a small cyst. No suspicious mass or shadowing is detected in the right breast. IMPRESSION: 1. Benign finding; no mammographic evidence of malignancy 2. Routine annual mammographic screening is recommended. BI-RADS Category 2: Benign finding(s). Reviewed, dictated and finalized at location A. IMPRESSION: 1. Benign finding; no mammographic evidence of malignancy 2. Routine annual mammographic screening is recommended. BI-RADS Category 2: Benign finding(s).
== END 2023-06-12 09:01 | disposition home or self-care (01) ==
LOC: CHSIMG 09:02
PROVIDERS: PCP Internal Medicine; Visit Provider Internal Medicine
DX: R92.8 Other abnormal and inconclusive findings on diagnostic imaging of breast (principal); D24.1 Benign neoplasm of right breast
CPT/HCPCS: 76641; 77061; 77065; G0279

== ENCOUNTER → 2023-06-28 08:41 | Outpatient (CLI) | payer MEDICARE, BC, SELFPAY ==
--- NOTE | ~2023-06-28 | MR_ITS ---
EXAMINATION: MR lumbar spine wo con DATE: 06/28/2023 09:22 INDICATION: Low back pain. TECHNIQUE: Magnetic resonance imaging (MRI) of the lumbar spine was performed without intravenous con trast. Sequences included sagittal T2-weighted FSE, sagittal T2-weighted FS FSE, sagittal T1-weighted FSE, and axial T2-weighted FSE. COMPARISON: Lumbar spine MRI 01/14/2022 FINDINGS: There is 5 degrees levocurvature of lumbar spine. Vertebral body heights are normal. There is mildly decreased disc height at L2-L3. The distal spinal cord signal intensity is normal. The conu s medullaris is at L1-L2. The following disc levels are specifically discussed: L1-L2: The disc does not extend beyond the endplate margin. There is mild bilateral facet joint osteo arthritis. There is no neural foraminal stenosis. There is no central canal stenosis. L2-L3: The disc is bulging and has an annular fissure. There is mild bilateral facet joint osteoarthr itis. There is mild bilateral neural foraminal stenosis. There is no central canal stenosis. L3-L4: The disc is bulging and has an annular fissure. There is mild bilateral facet joint osteoarthr itis. There is mild bilateral neural foraminal stenosis. There is mild central canal stenosis. L4-L5: The disc is bulging and has an annular fissure. There is no facet joint osteoarthritis. There is mild bilateral neural foraminal stenosis. There is mild central canal stenosis. L5-S1: The disc is bulging and has an annular fissure. There is no facet joint osteoarthritis. There is no neural foraminal stenosis. There is mild central canal stenosis. IMPRESSION: 1. Mild lumbar spondylosis, stable from 01/14/2022. Reviewed, dictated and finalized at location E.
== END ==
PROVIDERS: PCP Internal Medicine; Visit Provider Anesthesiology Pain Medicine
DX: M47.26 Other spondylosis with radiculopathy, lumbar region (principal)
CPT/HCPCS: 72148

== ENCOUNTER → 2023-08-14 12:10 | Outpatient (CLI) | payer MEDICARE, BC, SELFPAY ==
--- NOTE | ~2023-08-14 | XR_ITS ---
EXAMINATION: XR cervical spine min 6V DATE: 08/14/2023 13:43 INDICATION: Neck pain. TECHNIQUE: 6 views of cervical spine including flexion and extension views were obtained. COMPARISON: Cervical spine MRI 08/14/2023 FINDINGS: There is 2 mm retrolisthesis of C5 on C6. There is no abnormal motion with flexion or exten paige. Vertebral body heights are normal. There is mildly decreased disc height at C4-C5 and moderatel y decreased disc height at C5-C6. There is multilevel uncovertebral joint osteoarthritis, severe bila terally at C5-C6. There is multilevel mild facet joint osteoarthritis. There is mild central canal st enosis at C5-C6. No prevertebral soft tissue swelling. IMPRESSION: 1. Moderate cervical spondylosis. Reviewed, dictated and finalized at location E.
--- NOTE | ~2023-08-14 | MR_ITS ---
EXAMINATION: MR cervical spine wo con DATE: 08/14/2023 13:05 INDICATION: Radiculopathy, cervical region. Neck and shoulder pain. TECHNIQUE: Magnetic resonance imaging (MRI) of the cervical spine was performed without intravenous c ontrast. COMPARISON: Cervical spine radiographs 08/14/2023 FINDINGS: Bone alignment is normal. Vertebral body heights are normal. There is mildly decreased disc height at C4-C5 and moderately decreased disc height at C5-C6. The spinal cord signal intensity is n ormal. The following disc levels are specifically discussed: C2-C3: The disc does not extend beyond the endplate margin. There is mild left uncovertebral joint os teoarthritis. There is mild bilateral facet joint osteoarthritis. There is no neural foraminal stenos is. There is no central canal stenosis. C3-C4: The disc does not extend beyond the endplate margin. There is mild bilateral uncovertebral andrew nt osteoarthritis. There is no facet joint osteoarthritis. There is mild right neural foraminal steno sis. There is no central canal stenosis. C4-C5: The disc is bulging with superimposed central extrusion. There is moderate right and mild left uncovertebral joint osteoarthritis. There is mild bilateral facet joint osteoarthritis. There is mil d right neural foraminal stenosis. There is moderate central canal stenosis with ventral and dorsal i ndentation of spinal cord. C5-C6: The disc is bulging. There is severe bilateral uncovertebral joint osteoarthritis. There is no facet joint osteoarthritis. There is mild bilateral neural foraminal stenosis. There is mild central canal stenosis. C6-C7: There is a central extrusion. There is mild bilateral uncovertebral joint osteoarthritis. Ther e is no facet joint osteoarthritis. There is no neural foraminal stenosis. There is mild central chris l stenosis. C7-T1: The disc does not extend beyond the endplate margin. There is no uncovertebral joint osteoarth ritis. There is mild bilateral facet joint osteoarthritis. There is no neural foraminal stenosis. The re is no central canal stenosis. IMPRESSION: 1. Moderate cervical spondylosis. Reviewed, dictated and finalized at location E.
--- NOTE | ~2023-08-14 | XR_ITS ---
Right Shoulder Technique: AP and axillary views were obtained. Clinical History: Pain Findings: No fracture or dislocation is seen. Osseous alignment is anatomic. The glenohumeral and acr omioclavicular joints demonstrate mild degenerative change. Soft tissues are unremarkable. Impression: Mild degenerative change, as above. Reviewed, dictated and finalized at location . Impression: Mild degenerative change, as above.
== END ==
PROVIDERS: PCP Internal Medicine; Visit Provider Anesthesiology Pain Medicine
DX: M54.12 Radiculopathy, cervical region (principal); M43.02 Spondylolysis, cervical region; M24.111 Other articular cartilage disorders, right shoulder
CPT/HCPCS: 72052; 72141; 73030

== ENCOUNTER 2024-03-13 18:20 | Emergency (ER) | payer MEDICARE, BC, SELFPAY ==
--- NOTE | 2024-03-13 18:28 | ED.GENADULT ---
HPI - General Adult General Chief complaint: Extremity Injury, Lower Stated complaint: PW L TOE Source: patient, RN notes reviewed and old records reviewed Mode of arrival: ambulatory Limitations: no limitations History of Present Illness HPI narrative: 68-year-old female presents to the [facility] with a puncture wound to the left great toe/ ball of foot. States that she was walking barefoot on hardwood floors when a splinter of wood punctured medial left great toe. States it occurred approximately 830 this morning States that she pulled most of it out this morning Last tDap 12/20/17 per medical record. Related Data Home Medications Medication Instructions Recorded Confirmed solifenacin 10 mg tablet (Vesicare) 10 mg PO DAILY 05/29/20 03/13/24 omega 7-yxu-sot-fish oil 1,000 mg 1 cap PO DAILY 03/13/24 03/13/24 (120 mg-180 mg) capsule rosuvastatin 5 mg tablet 5 mg PO DAILY 03/13/24 03/13/24 valacyclovir 500 mg tablet 500 mg PO DAILY 03/13/24 03/13/24 Allergies Allergy/AdvReac Type Severity Reaction Status Date / Time epinephrine Allergy Unknown Other Verified 03/13/24 19:23 propoxyphene Allergy Unknown Other Verified 03/13/24 19:23 Sulfa (Sulfonamide Allergy Unknown Other Verified 03/13/24 19:23 Antibiotics) amoxicillin AdvReac Unknown Nausea Verified 03/13/24 19:23 erythromycin base AdvReac Unknown Verified 03/13/24 19:23 Review of Systems Review of Systems: All systems reviewed & are unremarkable except as noted in HPI and below Constitutional: Constitutional: Reports no additional constitutional complaints Eyes: Eyes: Reports no additional eye complaints ENT: Reports system reviewed and no additional complaints, except as documented Cardiovascular: Cardiovascular: Reports no additional cardiovascular complaints, Denies chest pain and Denies dyspnea Respiratory: Respiratory: Reports no additional respiratory complaints, Denies chest congestion, Denies cough and Denies dyspnea Gastrointestinal: Gastrointestinal: Reports no additional gastrointestinal complaints, Denies abdominal pain, Denies nausea and Denies vomiting Musculoskeletal: Musculoskeletal: Reports no additional musculoskeletal complaints Integumentary/Breasts: Skin/Breast: Reports as per HPI Neurologic: Reports system reviewed and no additional complaints, except as documented Psychiatric: Psychiatric: Reports no additional psychiatric complaints Allergic/Immunologic: Allergic/Immunologic: Reports no additional allergic/immunologic complaints PMF Past Medical History Medical History Cancer of peritoneum Lymphedema Right leg SVT (supraventricular tachycardia) Surgical History Surgical History H/O cardiac radiofrequency ablation History of hysterectomy Social History Social History Smoking status: Never smoker Alcohol intake: current Substance use: never Gender identity (if verbalized by the patient): Female Spiritual care concerns: No Comments At the time of my signature, I reviewed and agree with the nursing past medical, surgical, social, and family history. There is no relevant family history pertinent to the patient complaint. Exam Const: General: cooperative, healthy appearing, comfortable, no acute distress, well developed, alert and well nourished Nutritional Appearance: well nourished Orientation/consciousness: patient oriented x3 Limitations: no limitations HENMT: Head: normal to inspection Ears: hearing grossly normal bilaterally and external ears normal Face/Nose/Sinus: Normal external nose present, Normal nares present, Normal nasal mucous membranes and turbinates present, normal facial exam and face symmetric Face and sinus: normal facial exam and face symmetric Eyes: General: appearance normal, both eyes and all related structures
[2024-03-13 18:36] VITALS: BP 112/73; PULSE 78; RESP 14; TEMP 36.6; O2SAT 100
[2024-03-13] MEDS: TETANUS,DIPHTHERIA,AC PERTUSSIS ADULT (0.5 ML) BOOSTRIX IM (18:53)
== END 2024-03-13 19:20 | disposition home or self-care (01) ==
PROVIDERS: Emergency Provider Nurse Practitioner; PCP Internal Medicine
DX: S91.132A Puncture wound without foreign body of left great toe without damage to nail, initial encounter (principal); W45.8XXA Other foreign body or object entering through skin, initial encounter; Z23 Encounter for immunization; Z85.89 Personal history of malignant neoplasm of other organs and systems
CPT/HCPCS: 90471; 90715; 99213; G0463

== ENCOUNTER 2024-06-16 11:46 | Outpatient (CLI) | payer MEDICARE, BC, SELFPAY ==
--- NOTE | ~2024-06-16 | MM_ITS ---
EXAMINATION: MM screening esthela BI w jerri HISTORY: Screening TECHNIQUE: Craniocaudal and mediolateral oblique 3-D tomosynthesis images were obtained and synthetic 2-D images were generated. CAD analysis was submitted and interpreted. COMPARISON: Comparison to multiple prior studies sequentially, with oldest reviewed study dated 05/03. BREAST PARENCHYMAL COMPOSITION: Dense: The breasts are heterogeneously dense, which may obscure small masses FINDINGS: There is no evidence of suspicious mass, calcification, or architectural distortion to sugg est malignancy in either breast. There has been no suspicious interval change. IMPRESSION: 1. No mammographic evidence of malignancy. 2. Recommend routine screening mammography in one year. BI-RADS Category 1: Negative Reviewed, dictated and finalized at location B.
== END 2024-06-16 11:47 | disposition home or self-care (01) ==
LOC: CHSIMG 11:49
PROVIDERS: PCP Internal Medicine
DX: Z12.31 Encounter for screening mammogram for malignant neoplasm of breast (principal)
CPT/HCPCS: 77063; 77067

== ENCOUNTER 2024-08-05 12:15 | Outpatient (CLI) | payer MEDICARE, BC, SELFPAY ==
--- NOTE | ~2024-08-05 | DEXA_ITS ---
Bone Density Report Name: ARTEMIO HOPKINS Age: 69 Sex: Female Ethnicity: Donna Date of : 1955 Indication: postmenopausal; screening for osteoporosis; prior fracture; Referring Provider: FE STARKS Study: Bone densitometry was performed. Exam Date: August 05, 2024 Accession number: [id number] Bone Density: Region BMD T-score Z-score Classification AP Spine(L1-L4) 0.820 -2.1 -0.1 Osteopenia Femoral Neck (Left) 0.739 -1.0 0.7 Normal Total Hip (Left) 0.970 0.2 1.6 Normal Femoral Neck (Right) 0.737 -1.0 0.7 Normal Total Hip (Right) 0.893 -0.4 1.0 Normal Femoral Neck Mean 0.738 -1.0 0.7 Normal Total Hip Mean 0.932 -0.1 1.3 Normal World Health Organization criteria for BMD impression classify patients as: Normal (T-score at or above -1.0), Osteopenia (T-score between -1.0 and -2.5), or Osteoporosis (T-score at or below -2.5). 10-year Fracture Risk(1): Major Osteoporotic Fracture 13% Hip Fracture 1.2% Reported Risk Factors: [place] (), Neck BMD=0.737, BMI=22.4, previous fracture (1) FRAX(R) Version 3.08. Fracture probability calculated for an untreated patient. Fracture probability may be lower if the patient has received treatment. Clinical Information Provided by Patient: Has had a low trauma fracture Has used the following medications: Vitamin D, Calcium Patient maximum height was 64 Menopause Age: 53 No regular weight bearing exercise Onset of menses at age 18 Number of children 2 Impression: The patient has low bone mass, based on the Total Spine T-score. The patient has risk factors, including: previous fracture. Discussion: BONE DENSITY IS LOW AT ONE OR MORE SKELETAL SITES. This patient's lowest T-score is low at one or more skeletal sites. It meets the World Health Organization's (WHO) criteria for ?low bone mass? (T-score between -1.0 and -2.5). The patient's 10-year risk of fracture as calculated by FRAX is less than the threshold where pharmacological therapy is recommended by the National Osteoporosis Foundation (NOF). However, all treatment decisions require clinical judgment and consideration of individual patient factors, including patient preferences, comorbidities, previous drug use, risk factors not captured in the FRAX model (e.g., frailty, falls, vitamin D deficiency, increased bone turnover, interval significant decline in bone density) and possible under or overestimation of fracture risk by FRAX. The patient should follow a healthful lifestyle (good nutrition with adequate calcium and vitamin D, and appropriate weight-bearing exercise). Follow-Up: Consider repeating this study in 2 to 3 years to reassess this patient's status, or sooner if there is some new clinical indication. Reported by: TOMER on 08/05/20
== END 2024-08-05 12:16 | disposition home or self-care (01) ==
LOC: CHSIMG 12:17
PROVIDERS: PCP Internal Medicine; Visit Provider Internal Medicine
DX: Z78.0 Asymptomatic menopausal state (principal); M85.88 Other specified disorders of bone density and structure, other site
CPT/HCPCS: 77080

== ENCOUNTER 2025-06-19 10:12 | Outpatient (CLI) | payer MEDICARE, BC, SELFPAY ==
--- NOTE | ~2025-06-19 | MM_ITS ---
EXAMINATION: MM screening esthela BI w jerri HISTORY: Screening TECHNIQUE: Craniocaudal and mediolateral oblique 3-D tomosynthesis images were obtained and synthetic 2-D images were generated. CAD analysis was submitted and interpreted. COMPARISON: Comparison to multiple prior studies sequentially, with oldest reviewed study dated , 04/16/2018 BREAST PARENCHYMAL COMPOSITION: The breasts are heterogeneously dense, which may obscure small masses. FINDINGS: There is no evidence of suspicious mass, calcification, or architectural distortion to suggest malignancy in either breast. IMPRESSION: 1. No mammographic evidence of malignancy. 2. Recommend routine screening mammography in one year. BI-RADS Category 1: Negative Reviewed, dictated and finalized at location B.
--- OUTSIDE RECORDS SUMMARY | 2025-06-19 10:16 | XMS_ITS ---
Author Organization [facility] Address [address] [place] [address] Care Team Providers Care Superintendent Container Terminal Name Role Phone Dileep Tellez MD Unavailable [phone] Anat Monzon PICTURE ENGRAVER Primary Care Provider Active Problems Problem Noted Date Diagnosed Date Cellulitis 06/09/2025 Lumbar radiculopathy 06/09/2025 Pain due to varicose veins of both lower extremi ties 06/09/2025 Person under investigation for COVID-19 06/09/20 25 Puncture wound of toe 06/09/2025 Upper respiratory infection 06/09/2025 BMI 24.0-24.9, adult 01/14/2025 History of cervical cancer 10/26/2023 COVID-19 06/10/2021 Hypercholesteremia 08/09/2020 Assessment & Plan (08/09/2020 2:10 PM CDT): Reviewed pt recent lipid panel results High Total cholesterol and LDL levels Recent TSH WNL No know CVD or PVD Nutrition counseling provided to pt Repeat fasting Lipid panel in 3 months , if LDL remains elevated will consider starting statin therapy Intractable back pain 06/09/2020 Hypertension 06/09/2020 Swelling of lower extremity 09/21/2018 Edema 03/08/2018 Atrial flutter 01/18/2018 Cancer 12/14/2017 Family history of stroke 12/14/2017 Lightheadedness 12/14/2017 Palpitations 12/14/2017 Supraventricular tachycardia 10/22/2017 Abdominal bloating 10/08/2017 Healthcare maintenance 05/18/2017 Colon cancer screening 05/18/2017 Lymphedema, not elsewhere classified 10/09/2016 OAB (overactive bladder) 03/07/2014 Overview (01/26/2017): Overactive bladder Adenocarcinoma of cervix 03/28/2012 Herpes simplex virus (HSV) infection 06/13/2010 Acute exacerbation of chronic low back pain Bladder retention of urine Left thyroid nodule Assessment & Plan (11/26/2023 2:35 PM MODELER): Performed a follow-up thyroid ultrasound in office today Left inferior thyroid nodule remain stable Left mid thyroid nodule slightly increased in size when compared to 2020 thyroid ultrasound but stable when compared to 2019 thyroid ultrasound - no compressive symptoms - defer FNA biopsy at this - check TSH - Follow-up in 1 year Assessment & Plan (06/30/2021 3:08 PM CDT): performed a repeat thyroid ultrasound in office today Noted stable left thyroid nodules No compression symptoms last TSH 06/2020 WNL Follow up in 12 months Assessment & Plan (12/15/2020 10:15 PM MODELER): performed a repeat thyroid ultrasound in office today Noted stable left thyroid nodules No compression symptoms last TSH 06/2020 WNL Follow up in 6 months Assessment & Plan (08/09/2020 2:08 PM CDT): Reviewed pt recent thyroid ultrasound report Noted 2 left thyroid nodules Dominant left thyroid nodule measuring 1.7 cm No compressive symptoms Recent TSH WNL Follow up thyroid ultrasound in 3 months , if nodules grows > 2 mc will consider FNA biopsy Cervical spondylosis Osteoarthritis H/O atrial flutter Current Treatment and Therapy Plans No current plan information found. Past Treatment and Therapy Plans No past plan information found. Lifetime Dose Tracking * Chemical Lifetime Dose Automatic Entry Manual Entr y Fluoro Time 23.6 minutes 0 minutes 23.6 minutes
--- OUTSIDE RECORDS SUMMARY | 2025-06-19 10:16 | XMS_ITS | Encounter Summary ---
Author Organization [facility] Address [address] [place] [address] Phone Care Team Providers Care Sew Out Operator Name Role Phone Dileep Tellez MD Unavailable [phone] Anat Monzon NP Primary Care Provider [phone] Encounter Details Date Type Department Care Team (Late st Contact Info) Description 05/21/2025 Telephone [facility] Medicine Surgery [address] [place] [address] [place] [address] Sangeetha Zavala RN Social History Tobacco Use Types Packs/Day Years Used Date Smoking Tobacco: Never Smokeless Tobacco: Never Alcohol Use Standard Drinks/Week Comments Yes 0 (1 standard drink = 0.6 oz pur e alcohol) occassional AUDIT-C Answer Date Recorded Q1: How often do you have a drink containing alc ohol? 2-4 times a month 05/14/2025 Q2: How many drinks containi ng alcohol do you have on a typical day when you are drinking? 1 or 2 05/14/2025 Q3: How often do you have si x or more drinks on one occasion? Never 05/14/2025 PHQ-2 Answer Date Recorded PHQ-2 Total Score (If total score is 3 or more points, staff should administer the PHQ-9) 0 01/14/2025 Personal Safety Answer Date Recorded Have you ever been in or are you currently in a harmful physical or emotional relationship or is someone making you feel afraid or unsafe? Denies 05/15/2025 Comments No Sex and Gender Information Value Date Recorded Sex Assigned at Not on file Legal Sex Female 11:53 PM DIRECTIONAL DRILLER Gender Identity Not on file Sexual Orientation Straight 12/13/2020 7: 40 AM DIRECTIONAL DRILLER documented as of this encounter Miscellaneous Notes * Telephone Encounter - Sangeetha Zavala RN - 05/21/2025 3:51 PM CDT RN called and informed pt she would need to call and schedule appointment to discuss MRI results. RN provided scheduling hub number. She states she has been unable to reach anyone and she must speak with Olesya for scheduling. RN stated Olesya would call her back once she is able. RN will also informHelen of scheduling issue. * Telephone Encounter - Sangeetha Zavala RN - 05/21/2025 3:50 PM CDT ----- Message from Hilary Cordero sent at 05/21/2025 2:18 PM CDT ----- Regarding: Cathie PT Geovanni Arvizujuancho, Ms. Chopra stated she left a voicemail for Olesya to call her back on what to do next. Pt had a MRI lymphangiography done(results in EPIC). Should she schedule a f/u appointment to see Dr. Brand on his next available appointment to go overthe MRI lymphangiography results or will a surgery be scheduled for the patient? Nadia Suresh documented in this encounter Plan of Treatment Not on file documented as of this encounter Visit Diagnoses Not on filedocumented in this encounter Care Teams Sew Out Operator Relationship Specialty Start Date End Date Anat Monzon NP [address] [facility] [address] [place] [address] PCP - General Internal Medicine 11/25/24 [place] [address] [address] [place] [address] Consulting Physician Cardiology 09/25/18 documented as of this encounter
--- OUTSIDE RECORDS SUMMARY | 2025-06-19 10:16 | XMS_ITS | Encounter Summary ---
Author Organization [facility] Address [address] [place] [address] Care Team Providers Care Piggyback Clerk Name Role Phone Ancelmo Leon MD Primary Care Provider + Dileep Tellez MD Unavailable [phone] Alysia Thompson MD Primary Care Provider [phone] Anat Monzon NP Primary Care Provider [phone] Encounter Details Date Type Department Care Team (Latest Contact Info) Description 06/18/2018 Documentation Cardiology Dileep Tellez MD [address] [place] [address] Social History Tobacco Use Types Packs/Day Years Used Date Smoking Tobacco: Never Smokeless Tobacco: Never Alcohol Use Standard Drinks/Week Comments Yes 0 (1 standard drink = 0.6 oz pur e alcohol) occassional Comments Unknown Sex and Gender Information Value Date Recorded Sex Assigned at Not on file Legal Sex Female 11:53 PM PEER SUPPORT SPECIALIST Gender Identity Not on file Sexual Orientation Straight 12/13/2020 7: 40 AM PEER SUPPORT SPECIALIST documented as of this encounter Plan of Treatment Not on file documented as of this encounter Visit Diagnoses Not on filedocumented in this encounter Additional Health Concerns Infection Onset Date Last Indicated Resolved Time COVID: Suspected 11/10/2024 11/10/2024 11/10/2024 5:00 PM PEER SUPPORT SPECIALIST documented as of this encounter Care Teams Piggyback Clerk Relationship Specialty Start Date End Date Ancelmo Leon MD [address] [place] [address] PCP - General 01/19/17 10/05/19 [place] [address] [place] [address] PCP - General Internal Medicine 10/06/19 11/24/24 Anat Monzon NP [address] [place] [address] PCP - General Internal Medicine 11/25/24 [place] [address] [place] [address] Consulting Physician Cardiology 09/25/18 documented as of this encounter
--- OUTSIDE RECORDS SUMMARY | 2025-06-19 10:16 | XMS_ITS | Encounter Summary ---
Author Organization [facility] Address [address] [facility] [address] [place] [address] Phone Care Team Providers Care Cooking Teacher Name Role Phone Dileep Tellez MD Unavailable Alysia Thompson MD Primary Care Provider [phone] Anat Monzon NP Primary Care Provider [phone] Encounter Details Date Type Department Care Team (Latest Contact Info) Description 05/24/2020 Orders Only [facility] Fior Ashton MD [address] [facility] [place] [place] [phone] [place], [place] [id number] Social History Tobacco Use Types Packs/Day Years Used Date Smoking Tobacco: Never Smokeless Tobacco: Never Alcohol Use Standard Drinks/Week Comments Yes 0 (1 standard drink = 0.6 oz pur e alcohol) occassional Comments No Sex and Gender Information Value Date Recorded Sex Assigned at Not on file Legal Sex Female 11:53 PM JOURNEYMAN MECHANIC Gender Identity Not on file Sexual Orientation Straight 12/13/2020 7: 40 AM JOURNEYMAN MECHANIC documented as of this encounter Plan of Treatment Not on file documented as of this encounter Procedures Procedure Name Priority Date/Time Associated Diagnosis Comments SCAN - RADIOLOGY/IMAGING 05/24/2020 documented in this encounter Results * SCAN - RADIOLOGY/IMAGING (05/24/2020) Anatomical Region Laterality Modality Other us Premal Marc Ashton MD Final Re sult documented in this encounter Visit Diagnoses Not on filedocumented in this encounter Additional Health Concerns Infection Onset Date Last Indicated Resolved Time COVID: Suspected 11/10/2024 11/10/2024 11/10/2024 5:00 PM JOURNEYMAN MECHANIC documented as of this encounter Care Teams Cooking Teacher Relationship Specialty [place] [address] [facility] [address] [place] [address] PCP - General Internal Medicine 10/06/19 11/24/24 Anat Monzon NP [address] [facility] [address] [facility] [address] [place] [address] PCP - General Internal Medicine 11/25/24 [place] [address] [facility] [address] [place] [address] Consulting Physician Cardiology 09/25/18 documented as of this encounter
--- OUTSIDE RECORDS SUMMARY | 2025-06-19 10:16 | XMS_ITS | Patient Health Record ---
Author Organization [facility] Address [address] [facility] [address] [place] [address] Care Team Providers Care Agriculture Instructor Name Role Phone CARMEN ONOFRE Unavailable [phone] Allergies Allergen (clinical drug ingredient) Drug/Non Drug Allergy documented on EMR Reaction Allergy Type Onset Date Status amoxicillin Amoxicillin Unknown Drug Allergy Act eder EPINEPHrine Unknown Drug Allergy Activ e Reason For Referral No Information Medications Medication SIG (Take, Route, Fr equency, Duration) Notes Start Date End Date Status Spironolactone 100 MG 1 tablet Orally Once a day Active Calcium 500 MG 1 tablet with meals Orally Twice a day Active valACYclovir HCl 500 MG 1 tablet Orally Once a day Active Social History Tobacco Use: Social History Observation Description Date Details (start date - stop date) Never Smoker NA - NA Tobacco Use/Smoking Question Answer Notes Are you a nonsmoker Problems Problem Type SNOMED Code ICD Code Onset Dates Problem Status W/U Status Risk Notes Problem Pain co-occurrent and due to varicose veins of bilateral legs (65390941651674 100) Varicose veins of bilateral lower extremities with pain (I83.813) Active confirmed Problem Lymphedema (587635447) Lymphedema, not elsewhere classified (I89.0) Active confirmed Plan Of Treatment No Information Insurance Providers Payer Name Payer Address Payer Phone Subscriber Number Group Number Insured Name Patient Relationship to Insured Coverage Start Date Coverage End Date MEDICARE [place] [address] [place], [place] [id number] [facility] [place] Celeste Self - patient is the insured [employer] BLUE [address] [place] [address] [id number] Irving Montiela Self - patient is the insured Medical (General) History Medical History History ICD Code cancer Surgical History Surgery Date(Month/Year) rotator cuff hysteretoma torn meniscus ablation SI joint fusion
--- OUTSIDE RECORDS SUMMARY | 2025-06-19 10:16 | XMS_ITS | Clinical Summary ---
Author Organization [facility] Address [address] [place] [address] Care Team Providers Care Implementation Services Analyst Name Role Phone Dileep Tellez MD Unavailable [phone] Anat Monzon NP Primary Care Provider [phone] Allergies Active Allergy Reactions Criticality Noted Date Comments Amoxicillin Nausea & Vomiting Low Erythromycin Dizziness,Nausea only Low Propoxyphene Vomiting Low Sulfa (Sulfonamide Antibiotics) Other (See comments) . Medications solifenacin (VESICARE) 10 mg tablet take 1 tablet by oral route every day 0 0 04/23/20 13 Active Additional Information Patient taking differently:10 mgoral Every morning, Indications: Bladder Hyperactivity, Informant: Self, Reported on 05/15/2025 acyclovir (ZOVIRAX) 5 % ointment Apply topically 6 (six) times a day. 15 g 5 10/07/20 18 Active Additional Information Patient taking differently: 1 Applicationtopical 6 times daily,Pt using PRN, Indications: genital herpes simplex, Informant: Self, Reported on 05/15/2025 valACYclovir (VALTREX) 500 mg tablet TAKE 1 TABLET DAILY 90 tablet 2 10/17/20 24 Active Additional Information Patient taking differently:500 mg oralEvery morning, hsv, Informant: Self, Reported on 05/15/2025 rosuvastatin (CRESTOR) 5 mg tabletIndicati ons:hyperlipid emia Take 0.5 tablets (2.5 mg total) by mouth 2 (two) times a day 03/22/20 24 Active lutein 40 mg capsule Take 1 tablet/chew tab by mouth signal circuit designer before breakfast supplement Acti ve calcium carbonate-vit D3-min 600 mg-10 mcg (400 unit) tabletIndicati ons:Hypocalcem ia Prevention,Vit gandhi D Deficiency Take 1 tablet/capsule by mouth every morning Active metoprolol XL (TOPROL-XL) 50 mg extended release tablet Take 1 tablet (50 mg total) by mouth nightly Per pt for racing heart Active Active Problems Problem Noted Date Diagnosed Date [...] nodule Assessment & Plan (11/26/2023 2:35 PM AUTOMOBILE CARPETS MOLDER): Performed a follow-up thyroid ultrasound in office [...] months Assessment & Plan (12/15/2020 10:15 PM AUTOMOBILE CARPETS MOLDER): performed a repeat thyroid ultrasound in office [...] biopsy Cervical spondylosis Osteoarthritis H/O atrial flutter Encounters Date Type Department Care Team Description 06/09/2025 2:45 PM CDT [facility] [address] [facility] Advanced Medicine 6th [place] [address] Carlos Brand MD Lymphedema, not elsewhere classified (Primary Dx) 05/21/2025 [facility] [address] [facility] Advanced Medicine 6th [place] [address] Sangeetha Zavala RN 05/15/2025 9:49 AM CDT Anesthesia Event [facility] Radiology [address] [place] [address] Rena Xavier MD Kraemer, Elizabeth Mishoe, NP 05/15/2025 7:23 AM CDT - 05/15/2025 11:59 PM CDT Hospital Encounter [facility] Radiology [address] [place] [address] XavierRena castillo MD Frierdich, Justin Eric, CRNA Lymphedema Discharge Disposition: Discharge to home or self care 05/14/2025 8:00 AM CDT Pre-Admission Testing [facility] Assessment and [facility] [address] [place] [address] 05/07/2025 Telephone [facility] Medicine Surgery [address] [facility] Medicine 6th [place] [address] Sangeetha Zavala, BISMARK 04/17/2025 [facility] [address] [place] [address] 6th [place] [address] Sangeetha Zavala, BISMARK Lymphedema (Primary Dx) 04/16/2025 Telephone [facility] Surgery [address] [place] [address] 6th [place] [address] Jd Falcon CMA 04/15/2025 1:42 PM CDT - 04/15/2025 11:59 PM CDT Hospital Encounter [facility] Imaging [address] [place] [address] Lymphedema Discharge Disposition: Discharge to home or self care from Last 3 Months Immunizations Immunization Administration Dates Next Due Flucelvax Influenza Quad 08/06/2019,12/20/2017 Influenza, Quadrivalent, Spl it, Preservative Free, Intramuscular 08/15/2016 Influenza, Trivalent, IM (MDV) 07/22/2011 Influenza, Trivalent, Preservative Free, Intramu scular 08/14/2016 Influenza, Unspecified 08/10/2024 Tdap 12/20/2017,04/21/2006 ZOSTER LIVE 12/01/2016 ZOSTER Recombinant 12/30/2019,10/30/2019 Surgical History Surgery Date Site/Laterality Comments OTHER SURGICAL HISTORY abnormal pap: LEAP x3 OTHER SURGICAL HISTORY 10/22/2005 - 10/21/2006 rt hand tendon KNEE ARTHROSCOPY Bilateral Arthroscopy knee HYSTERECTOMY 10/22/2007 - 10/21/2008 Hysterectomy CARDIAC CATHETERIZATION CARDIAC SURGERY may and september 2018 TRIGGER FINGER RELEASE Bilateral OTHER SURGICAL HISTORY Right s I joint fusion BACK SURGERY Fusion ROTATOR CUFF REPAIR 10/22/2021 - 11/21/2021 NECK SURGERY 04/21/2024 - 05/21/2024 Medical History Medical History Date Comments History of abnormal cervical Papanicolaou smear abnormal pap Hx Other Medical skin bx (neg) Hx Other Medical 01-HE[employer]IP Hx Other Medical 02-ORTHO Malignant neoplasm of cervix (HCC) Cancer, cervical Hx Other Medical HSV History of multiple allergies Al lergies Hx Other Medical Headache, migra ine Hx Other Medical andeo cancer Hx Other Medical 2007 Adenocarcinoma cervix Hx Other Medical 04/10/2012 hand surgery; L aterality: left Hx Other Medical lymphedema; Com ments: CRG 05/10/2015 - Lymphedema Atrial flutter (HCC) PONV (postoperative nausea a nd vomiting) with Colonoscopy age of 51 - denies issues since Delayed emergence from gener al anesthesia with Colonoscopy age of 51 - denies issues since Motion sickness Ruptured lumbar disc Overactive bladder Holter monitor, abnormal 09/25/2018 Family History Medical History Relation Name Comments Other Brother 2 Alive and well; Other Father work injury; Diabetes Maternal Grandmother Diabete s mellitus; COPD Mother COPD; Cause of : COPD Diabetes Other Family history of Diabetes mellitus; Dementia Paternal Grandmother Dementi a; Other Sister 2 Alive and well; Relation Name Status Comments Brother 1 Alive Brother 2 Father Maternal Grandmother Mother Other Paternal Grandmother Sister 1 Alive Sister 2 Social History Tobacco Use Types Packs/Day Years Used Date Smoking Tobacco: Never Smokeless Tobacco: Never Tobacco Cessation:Counseling Given: No Alcohol Use Standard Drinks/Week Comments Yes 0 [...] on file Legal Sex Female 11:53 PM AUTOMOBILE CARPETS MOLDER Gender Identity Not on file Sexual Orientation Straight 12/13/2020 7: 40 AM AUTOMOBILE CARPETS MOLDER Obstetrics History Para Term AB IAB SAB Ectopic Multiple Livin g Live Births 2 0 2 2 Date Outcome GA Total Labor Labor/2nd/3rd Weight Sex Type Anes PTL Sandrine A1 A5 Name Clin Last Filed Vital Signs Vital Sign Reading Time Taken Comments Blood Pressure 94/83 05/15/2025 1:30 PM CDT Pulse 78 05/15/2025 1:40 PM CDT Temperature 36 C (96.8 F) 05/15/2025 12:10 PM CDT Respiratory Rate 19 05/15/2025 1:40 PM CDT Oxygen Saturation 96% 05/15/2025 1:40 PM CDT Inhaled Oxygen Concentration - - Weight 62.6 kg (138 lb) 05/15/2025 8:25 AM CDT Height 160 cm (5' 3) 05/14/2025 8:05 AM CDT Body Mass Index 24.45 05/14/2025 8:05 AM CDT Plan of Treatment Health Maintenance Due Date Last Done Comments Hepatitis C Screening 1955 Hepatitis B Screening 1974 Pneumococcal vaccine 65+ (1 of 1 - PCV) 2006 Osteoporosis Screening-Bone Density Scan 05/09/2015 05/09/2013 Colon Cancer Screening-DNA Stool 05/22/2019 05/22/20 16, 07/26/2006 Well Visit 65+ 2021 05/18/2017 Covid-19 Vaccine (3 - 2023-2 5 season) 2024 01/17/2021, 12/27/2020 Breast Cancer Screening-Mammogram 06/16/2025 06/16/2024, 05/25/2020, 04/26/2017, Additional history exists Influenza Vaccine (#1) 2025 , 08/06/2019, 12/20/2017, Additional history exists Depression Screening 01/14/2026 01/14/2025, 06/30/2021, 08/09/2020, Additional history exists Fall Risk Assessment 05/14/2026 05/14/2025, 01/14/2025, 11/26/2023 DTaP/Tdap/Td Vaccine (4 - Td or Tdap) 03/13/2034 03/13/2024, 12/20/2017, 04/21/2006 Zoster Vaccine Completed 12/30/2019, 06/2020, 12/01/2016 Procedures Procedure Name Priority Date/Time Associated Diagnosis Comments MSK INJECTION LYMPHANGIOGRAM FOR MRI BILATERAL Schedule Routine, Read Routine (OP Routine) 05/15/2025 12:18 PM CDT Lymphedema MRI LYMPHANGIOGRAPHY LOWER EXTREMITIES BILATERAL Schedule Routine, Read Routine (OP Routine) 05/15/2025 12:18 PM CDT Lymphedema UT AN PROCEDURE PLACEHOLDER Routine 05/15/2025 10:53 AM CDT UT AN ELECTIVE SUPRAGLOTTIC AIRWAY Routine 05/15/2025 10:53 AM CDT MSK INJECTION LYMPHANGIOGRAM FOR MRI BILATERAL Schedule Routine, Read Routine (OP Routine) 04/15/2025 3:16 PM CDT Lymphedema SCREENING MAMMOGRAM BILATERAL W CONNOR Schedule Routine, Read Routine (OP Routine) 05/25/2020 HM DNA STOOL Routine 05/22/2016 HM DEXA SCAN Routine 05/09/2013 from Last 3 Months or Most Recently Relevant to Health Maintenance Results * MSK Injection Lymphangiogram for MRI Bilateral (05/15/2025 12:18 PM CDT) Anatomical Region Laterality Modality Body Magnetic Resonan ce 05/15/2025 4:18 PM CDT Impressions 05/15/2025 5:23 PM CDT Successful web space injection of both feet for MR lymphangiography. Dictated by: Hoang Larios MD The radiology attending physician has personally reviewed this study, and had reviewed and/or edited this written report and agrees with it. Electronically signed by: Peyman English MD Narrative 05/15/2025 5:23 PM CDT EXAMINATION: 1. Left foot lymphangiogram injection 2. Right foot lymphangiogram injection HISTORY: Right lymphedema, pre MR lymphangiography webspace injection TECHNIQUE: Prior to beginning the procedure, [place] Protocol was performed to confirm the patient's identity and the planned procedure. The patient was placed supine on the stretcher. The skin of both feet were prepped and draped in a standard sterile fashion. Using sterile technique, a 8 mL solution was prepared consisting of approximately 6 mL Multihance gadolinium contrast and 2 mL sterile saline. A 25 gauge needle was introduced in the web space between each toe on both feet, and 1 mL of the dilute gadolinium solution was injected per web space. The injection was performed by Dr. Larios and Dr. English. The injection sites were massaged to facilitate lymphatic uptake. There were no complications of the procedure. Dr. Peyman English MD, the attending radiologist, was present from the beginning to the end of the procedure. FINDINGS: The results of the MR lymphangiogram are reported separately. Procedure Note April English MD - 05/15/2025 EXAMINATION: 1. Left foot lymphangiogram injection 2. Right foot lymphangiogram injection HISTORY: Right lymphedema, pre MR lymphangiography webspace injection TECHNIQUE: Prior to beginning the procedure, [place] Protocol was performed to confirm the patient's identity and the planned procedure. The patient was placed supine on the stretcher. The skin of both feet were prepped and draped in a standard sterile fashion. Using sterile technique, a 8 mL solution was prepared consisting of approximately 6 mL Multihance gadolinium contrast and 2 mL sterile saline. A 25 gauge needle was introduced in the web space between each toe on both feet, and 1 mL of the dilute gadolinium solution was injected per web space. The injection was performed by Dr. Larios and Dr. English. The injection sites were massaged to facilitate lymphatic uptake. There were no complications of the procedure. Dr. Peyman English MD, the attending radiologist, was present from the beginning to the end of the procedure. FINDINGS: The results of the MR lymphangiogram are reported separately. IMPRESSION: Successful web space injection of both feet for MR lymphangiography. Dictated by: Hoang Larios MD The radiology attending physician has personally reviewed this study, and had reviewed and/or edited this written report and agrees with it. Electronically signed by: Peyman English MD us Carlos Brand MD IMG IR PROCEDURES Final Resul t * MRI Lymphangiography Lower Extremities Bilateral (05/15/2025 12:18 PM CDT) Anatomical Region Laterality Modality Lower Extremities Magnetic Reson ance 05/15/2025 12:4 8 PM CDT Impressions 05/15/2025 12:48 PM CDT 1. Moderate right lower extremity lymphedema characterized by both excess fat and fluid accumulation. No dilated lymphatic channels. 2. Normal left lower extremity. Electronically signed by: Jayson Mayfield M.D. Narrative 05/15/2025 12:48 PM CDT EXAMINATION: 1. MAGNETIC RESONANCE IMAGING OF THE PELVIS WITH CONTRAST 2. MAGNETIC RESONANCE IMAGING OF THE RIGHT LOWER EXTREMITY WITH CONTRAST 3. MAGNETIC RESONANCE IMAGING OF THE LEFT LOWER EXTREMITY WITH CONTRAST HISTORY: Cervical cancer status post hysterectomy and lymph node dissection, with right lower extremity swelling. Evaluate lymphedema TECHNIQUE: Magnetic resonance imaging of the pelvis and both lower extremities was performed after the uneventful administration of lymphatic and intravenous Gadolinium contrast. Description of the lymphatic injection is detailed in a separate report. Protocol: MR lymphangiography lower extremities Contrast: MultiHance 20 mL COMPARISON: No prior magnetic resonance imaging is available for comparison. FINDINGS: Right Lower Extremity: Fluid composition: 1 (Honeycombing/reticular pattern of fluid within the subcutaneous fat) Fat composition: 0 (no excess fat) Severity of lymphedema: moderate * Mild * Superior margin of subcutaneous infiltration below the knee * Mild fluid infiltration of subcutaneous fat without increase in dimensions of fat * Epifascial fluid collections less than 5 mm thickness * Moderate: * Superior margin of subcutaneous infiltration above the knee but not involving the entire limb * Moderate fluid infiltration of subcutaneous fat and increase in dimensions of fat * Epifascial fluid collections between 5 and 15 mm thickness * Severe * Subcutaneous infiltration involving the entire limb * Severe fluid infiltration with marked increase in dimensions of fat * Epifascial fluid collections greater than 15 mm thickness Muscular compartment involvement: No intramuscular edema or fatty atrophy. Dermal thickening: Absent (< 2mm thickness) Venous System: No venous thrombosis or dilated varicosities. Lymphatics: No dilated lymphatic channels are identified. No dermal backflow. Normal caliber lymphatic channels are seen within the ankle on series 104 image 34. Left Lower Extremity: Fluid composition: 0 (no fluid) Fat composition: 0 (no excess fat) Severity of lymphedema: none * Mild * Superior margin of subcutaneous infiltration below the knee * Mild fluid infiltration of subcutaneous fat without increase in dimensions of fat * Epifascial fluid collections less than 5 mm thickness * Moderate: * Superior margin of subcutaneous infiltration above the knee but not involving the entire limb * Moderate fluid infiltration of subcutaneous fat and increase in dimensions of fat * Epifascial fluid collections between 5 and 15 mm thickness * Severe * Subcutaneous infiltration involving the entire limb * Severe fluid infiltration with marked increase in dimensions of fat * Epifascial fluid collections greater than 15 mm thickness Muscular compartment involvement: No intramuscular edema or fatty atrophy Dermal thickening: Absent (< 2mm thickness) Venous System: No venous thrombosis or dilated varicosities. Lymphatics: No dilated lymphatic channels or dermal backflow. Degree of venous contamination: Mild (present but did not affect discrimination of lymphatics) Other findings: The urinary bladder is normal. The uterus is surgically absent. Trace free fluid in the pelvis. The imaged bowel is normal caliber. No enhancing bone lesions. Normal-appearing bilateral inguinal lymph nodes. Procedure Note Jayson Mayfield MD - 05/15/2025 EXAMINATION: 1. MAGNETIC RESONANCE IMAGING OF THE PELVIS WITH CONTRAST 2. MAGNETIC RESONANCE IMAGING OF THE RIGHT LOWER EXTREMITY WITH CONTRAST 3. MAGNETIC RESONANCE IMAGING OF THE LEFT LOWER EXTREMITY WITH CONTRAST HISTORY: Cervical cancer status post hysterectomy and lymph node dissection, with right lower extremity swelling. Evaluate lymphedema TECHNIQUE: Magnetic resonance imaging of the pelvis and both lower extremities was performed after the uneventful administration of lymphatic and intravenous Gadolinium contrast. Description of the lymphatic injection is detailed in a separate report. Protocol: MR lymphangiography lower extremities Contrast: MultiHance 20 mL COMPARISON: No prior magnetic resonance imaging is available for comparison. FINDINGS: Right Lower Extremity: Fluid composition: 1 (Honeycombing/reticular pattern of fluid within the subcutaneous fat) Fat composition: 0 (no excess fat) Severity of lymphedema: moderate * Mild * Superior margin of subcutaneous infiltration below the knee * Mild fluid infiltration of subcutaneous fat without increase in dimensions of fat * Epifascial fluid collections less than 5 mm thickness * Moderate: * Superior margin of subcutaneous infiltration above the knee but not involving the entire limb * Moderate fluid infiltration of subcutaneous fat and increase in dimensions of fat * Epifascial fluid collections between 5 and 15 mm thickness * Severe * Subcutaneous infiltration involving the entire limb * Severe fluid infiltration with marked increase in dimensions of fat * Epifascial fluid collections greater than 15 mm thickness Muscular compartment involvement: No intramuscular edema or fatty atrophy. Dermal thickening: Absent (< 2mm thickness) Venous System: No venous thrombosis or dilated varicosities. Lymphatics: No dilated lymphatic channels are identified. No dermal backflow. Normal caliber lymphatic channels are seen within the ankle on series 104 image 34. Left Lower Extremity: Fluid composition: 0 (no fluid) Fat composition: 0 (no excess fat) Severity of lymphedema: none * Mild * Superior margin of subcutaneous infiltration below the knee * Mild fluid infiltration of subcutaneous fat without increase in dimensions of fat * Epifascial fluid collections less than 5 mm thickness * Moderate: * Superior margin of subcutaneous infiltration above the knee but not involving the entire limb * Moderate fluid infiltration of subcutaneous fat and increase in dimensions of fat * Epifascial fluid collections between 5 and 15 mm thickness * Severe * Subcutaneous infiltration involving the entire limb * Severe fluid infiltration with marked increase in dimensions of fat * Epifascial fluid collections greater than 15 mm thickness Muscular compartment involvement: No intramuscular edema or fatty atrophy Dermal thickening: Absent (< 2mm thickness) Venous System: No venous thrombosis or dilated varicosities. Lymphatics: No dilated lymphatic channels or dermal backflow. Degree of venous contamination: Mild (present but did not affect discrimination of lymphatics) Other findings: The urinary bladder is normal. The uterus is surgically absent. Trace free fluid in the pelvis. The imaged bowel is normal caliber. No enhancing bone lesions. Normal-appearing bilateral inguinal lymph nodes. IMPRESSION: 1. Moderate right lower extremity lymphedema characterized by both excess fat and fluid accumulation. No dilated lymphatic channels. 2. Normal left lower extremity. Electronically signed by: Jayson Mayfield M.D. us Carlos Brand MD [facility] MRI PROCEDURES Final Resu lt * UT AN ELECTIVE SUPRAGLOTTIC AIRWAY, UT AN PROCEDURE PLACEHOLDER (05/15/2025 10:53 AM CDT) Narrative Carlos Rogers CRNA - 05/15/2025 10:53 AM CDT Carlos Rogers CRNA 05/15/2025 10:54 AM Airway Patient location: OR Urgency: elective Indications for airway management: anesthesia Difficult airway: no Staff: Supervising provider: Rena Xavier MD Placed by: FILTRATION SUPERVISOR: Carlos Rogers CRNA Emergent airway documentation: Risks and benefits discussed: yes Consent obtained: yes Consent given by: patient Airway prep: Preoxygenated: yes Patient position: sniffing Mask difficulty assessment: 0 - not attempted Spontaneous ventilation during airway: absent Sedation level during airway: GA Final airway details: Final airway type: supraglottic airway Video blade type: Werner Cormack-Lehane (video): grade I - full view of glottis SGA size: 3 Number of attempts: 3 or more Ventilation between attempts: BVM and 2 hand mask Additional comments: 1st attempt by FILTRATION SUPERVISOR with 4IGel got caught on the tongue, 2nd attempt by MD got caught on the tongue, 3rd attempt by TED with 3IGel. us Rena Xavier MD ANESTHESIA ORDERABLES Final Result * MSK Injection Lymphangiogram for MRI Bilateral (04/15/2025 3:16 PM CDT) Anatomical Region Laterality Modality Body Magnetic Resonan ce, X-Ray Angiography 04/15/2025 4:58 PM CDT Impressions 04/15/2025 5:01 PM CDT Aborted lymphangiogram injection after one webspace injection in the right foot. The left foot webspaces were not injected. Dictated by: Ryan Hanks M.D. The radiology attending physician has personally reviewed this study, and had reviewed and/or edited this written report and agrees with it. Electronically signed by: Mark Ha MD, PHD Narrative 04/15/2025 5:01 PM CDT EXAMINATION: Right foot lymphangiogram injection HISTORY: Lymphedema, pre MR lymphangiography webspace injection TECHNIQUE: Prior to beginning the procedure, [place] Protocol was performed to confirm the patient's identity and the planned procedure. The patient was placed supine on the MR gantry table. The skin of both feet were prepped and draped in a standard sterile fashion. Using sterile technique, a 10 mL solution was prepared consisting of approximately 7.5 mL Multihance gadolinium contrast and 2.5 mL sterile saline. A 25 gauge needle was introduced in the web space between the 1st and 2nd toes of the right feet and 1 mL of the dilute gadolinium solution was injected in the web space. This was extremely painful for the patient and she expressed desire to cancel the procedure and stopped further injections. There were no complications of the procedure. Dr. Mark Ha MD, PHD, the attending radiologist, was present from the beginning to the end of the procedure. FINDINGS: No images were obtained. Procedure Note Mark Ha MD PhD - 04/15/2025 EXAMINATION: Right foot lymphangiogram injection HISTORY: Lymphedema, pre MR lymphangiography webspace injection TECHNIQUE: Prior to beginning the procedure, [place] Protocol was performed to confirm the patient's identity and the planned procedure. The patient was placed supine on the MR gantry table. The skin of both feet were prepped and draped in a standard sterile fashion. Using sterile technique, a 10 mL solution was prepared consisting of approximately 7.5 mL Multihance gadolinium contrast and 2.5 mL sterile saline. A 25 gauge needle was introduced in the web space between the 1st and 2nd toes of the right feet and 1 mL of the dilute gadolinium solution was injected in the web space. This was extremely painful for the patient and she expressed desire to cancel the procedure and stopped further injections. There were no complications of the procedure. Dr. Mark Ha MD, PHD, the attending radiologist, was present from the beginning to the end of the procedure. FINDINGS: No images were obtained. IMPRESSION: Aborted lymphangiogram injection after one webspace injection in the right foot. The left foot webspaces were not injected. Dictated by: Ryan Hanks M.D. The radiology attending physician has personally reviewed this study, and had reviewed and/or edited this written report and agrees with it. Electronically signed by: Mark Ha MD, PHD us Carlos Brand MD [facility] IR PROCEDURES Final Resul t * Screening Mammogram Bilateral W Connor (05/25/2020) Anatomical Region Laterality Modality Breast Bilateral Mammography us Premal Marc Ashton MD [facility] MAMMO PROCEDURES Fin al Result * HM DNA STOOL (05/22/2016) COLOGUARD Normal Comment:NEGATIVE Historical Provider HEALTH MAINTENANCE Final Result * DEXA SCAN (05/09/2013) DEXA Scan Normal Historical Provider HEALTH MAINTENANCE Final Result from Last 3 Months or Most Recently Relevant to Health Maintenance Insurance MEDICARE MEDICARE [facility]ARE [facility] Advance Directives For more information, please contact: [phone] Documents on File Type Date Recorded Patient Cylinder Tester Expl anation Advance Directives and Livin g Will 05/15/2025 7:20 AM * Full Code (Latest Code Status on File) Date Activated Date Inactivated Comments 06/09/2020 1:48 AM 06/11/2020 8:18 PM Care Teams Implementation Services Analyst Relationship Specialty Start Date End Date Anat Monzon NP [address] [place] [address] PCP - General Internal Medicine 11/25/24 [place] [id number] [place] [address] Consulting Physician Cardiology 09/25/18
== END 2025-06-19 10:13 | disposition home or self-care (01) ==
LOC: CHSIMG 10:12
PROVIDERS: PCP Nurse Practitioner Family; Visit Provider Obstetrics & Gynecology Gynecologic Oncology
DX: Z12.31 Encounter for screening mammogram for malignant neoplasm of breast (principal)
CPT/HCPCS: 77063; 77067